=== PATIENT | female | born 1975 | race African-American/Black ===

== ENCOUNTER 2023-09-02 10:41 | Outpatient (REF) | payer MEDICAID, SELFPAY ==
[2023-09-02 13:15] LABS: MANUAL DIFF FLAG NO
[2023-09-02 13:19] LABS: Basophils Absolute Auto 0.1 X10*3/uL (0.0-0.2); Basophils Percent Auto 0.6 % (0-2); Eosinophils Absolute Auto 0.2 X10*3/uL (0.0-0.4); Eosinophils Percent Auto 2.5 % (0-4); Hematocrit 39.1 % (37.0-47.0); Hemoglobin 13.2 g/dl (12.0-16.0); Imm Gran Abs Auto 0.02 X10*3/uL (0.00-0.03); Imm Gran Pct Auto 0.2 % (0.0-0.4); Lymphocytes Absolute Auto 2.1 X10*3/uL (1.2-4.9); Lymphocytes Percent Auto 23.9 % (20-40); Mean Corpuscular HGB Conc 33.8 g/dl (31.0-35.0); Mean Corpuscular Volume 91.8 fL (80.0-98.0); Mean Platelet Volume 10.9 fL (9.4-12.3); Monocytes Absolute Auto 0.6 X10*3/uL (0.1-1.2); Monocytes Percent Auto 6.7 % (2-11); Neutrophils Absolute Auto 5.9 x10*3/uL (2.0-8.3); Neutrophils Percent Auto 66.1 % (45-73); Platelet Count 349 X10*3/uL (160-400); Red Blood Count 4.26 X10*6/uL (4.20-5.50); Red Cell Distribution Width 13.5 % (11.0-16.0); White Blood Count 8.9 X10*3/uL (4.8-10.8)
[2023-09-02 13:45] LABS: Alanine Aminotransferase 12 U/L (0-31); Albumin Level 4.1 g/dL (3.5-5.0); Alkaline Phosphatase 70 U/L (39-117); Anion Gap 11 (12-20); Aspartate Amino Transferase 16 U/L (5-31); Bilirubin Total 0.4 mg/dL (0.0-1.0); Blood Urea Nitrogen 5 mg/dL (9-16); Calcium 9.7 mg/dL (8.4-10.2); Carbon Dioxide 26 mmol/L (22-29); Chloride 103 mmol/L (96-108); Cholesterol 294 mg/dL (<200); Estimated Glomerular Filt Rate > 60; Glucose Random 96 mg/dL (60-115); HDL Cholesterol 30 mg/dL (>40); LDL Cholesterol Calculated 200 mg/dL (<100); Potassium 3.7 mmol/L (3.3-5.1); Sodium 136 mmol/L (135-145); Total Protein 7.2 g/dL (6.5-8.0); Triglycerides 321 mg/dL (<150)
== END 2023-09-02 10:42 | disposition home or self-care (01) ==
LOC: HO.10HDL 10:41
PROVIDERS: Visit Provider Internal Medicine
DX: Z00.00 Encounter for general adult medical examination without abnormal findings (principal); E78.00 Pure hypercholesterolemia, unspecified; I10 Essential (primary) hypertension; Z12.4 Encounter for screening for malignant neoplasm of cervix; Z72.0 Tobacco use
CPT/HCPCS: 36415; 80053; 80061; 85025

== ENCOUNTER 2023-09-15 13:04 | Outpatient (AMB) | payer MEDICAID, SELFPAY ==
--- NOTE | 2023-09-15 13:09 | A.OFFVIS_ITS ---
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 She states she has been getting a discomfort in substernal area and she points to the area underneath the left breast. This can happen any time. Sometimes with rest, sometimes exertion, and there is no specific patterns. No known coronary disease or myocardial infarction or cardiomyopathy. Not a known hypertensive or diabetic but today's blood pressure is on the higher side. She has a chronic smoker and trying to cut back. She is also overweight. Patient is adopted and hence no family history. [facility] Surgical History (Updated 09/15/23 @ 13:14 by Adelina Hart) H/O tubal ligation Family History (Updated 09/15/23 @ 13:22 by Wang Roger MD) Unknown No problems noted. Social History (Updated 09/15/23 @ 13:14 by Adelina Hart) Alcohol intake: current Alcohol intake frequency: holidays/special occasions only Patient Tobacco Use Status: Current everyday Tobacco user Cigarettes Per Day: 4 Review of Systems Const Denies chills, Denies daytime sleepiness, Denies fatigue, Denies fever(s), Denies frequent falls, Denies night sweats, Denies snoring, Denies weakness, Denies weight gain and Denies weight loss Eyes Denies loss of vision ENT Denies dizziness and Denies hearing loss Card Denies chest pain, Denies chest pain with activity, Denies syncope, Denies rapid heart rate, Denies edema, Denies claudication, Denies leg edema, Denies lightheadedness, Denies palpitations, Denies dyspnea, Denies dyspnea on exertion and Denies orthopnea Resp Denies cough, Denies excessive phlegm production, Denies dyspnea, Denies dyspnea on exertion, Denies snoring and Denies wheezing GI Denies abdominal pain, Denies hematochezia, Denies change in bowel habits, Denies change in stool character, Denies heartburn, Denies nausea and Denies vomiting Denies hematuria, Denies urinary frequency and Denies dysuria Musc Denies arthralgias, Denies muscle weakness, Denies numbness and Denies tingling Skin/Breast Denies nail changes and Denies rash Neuro Denies Abnormal speech present, Denies dizziness, Denies syncope, Denies frequent falls, Denies loss of vision, Denies memory loss, Denies numbness, Denies tingling and Denies weakness Psych Denies depression and Denies memory loss Endo Denies fatigue and Denies palpitations Aller/Immun Denies wheezing Physical Exam Vital Signs: Last Vital Signs Pulse 75 09/15/23 13:11 BP 138/90 H 09/15/23 13:11 BMI result Body Mass Index 35.4 Const General: comfortable and no acute distress Orientation/consciousness: patient oriented x3 HEENT Other: Unremarkable Head: Yes normal to inspection Neck Neck: Yes normal visual inspection Chest Chest palpation & inspection: normal inspection of the chest Resp Auscultation: clear to auscultation bilaterally Cardio Palpation: normal PMI Heart sounds: S1 normal heart sound present, S2 normal heart sound present, no gallops, no murmurs and no rubs GI Palpation (GI): Soft to palpation Back/Spine/Pelvis Other: unremarkable Skin General skin exam: no rashes or lesions noted Neuro General: patient oriented x3 Speech: No Abnormal speech present Extrem General: Yes normal to inspection Psych Mental Status: mental status grossly normal Office Procedures EKG Details: EKG with sinus rhythm at 75/Min; no significant ST-T changes and otherwise unremarkable[place] [id number], Complete Assessment & Plan Assessment & Plan (1) Precordial chest pain: Code(s): R07.2 - Precordial pain Plan Atypical sounding chest pain but has risk factors of being overweight and also being a smoker. Can get an echocardiogram and exercise stress test. Follow-up after the above. Orders: Orders CA echo transthoracic complete Today I25.10 - Atherosclerotic heart disease of [place] coronary artery without angina pectoris, R07.2 - Precordial pain CA echo stress exercise Today R07.2 - Precordial pain Coding Level of Care Code New Pt Level 3 (11855) Diagnoses Precordial chest pain R07.2 CPT Codes EKG - CPT: 40550-[id number], Complete ([id number])
[2023-09-15 13:11] VITALS: BP 138/90; PULSE 75; BMI 35.4
== END 2023-09-15 13:28 | disposition home or self-care (01) ==
PROVIDERS: PCP Internal Medicine; Visit Provider Internal Medicine
DX: R07.2 Precordial pain (principal)
CPT/HCPCS: 93010; 99203

== ENCOUNTER → 2023-09-15 13:04 | Outpatient (BNVA) | payer MEDICAID, SELFPAY | PROVIDERS: PCP Internal Medicine; Visit Provider Internal Medicine | DX: R07.2 Precordial pain (principal) | CPT/HCPCS: 93005; 99202 ==

== ENCOUNTER → 2023-11-04 13:52 | Outpatient (REF) | payer MEDICAID, SELFPAY | LOC: HO.CARD 13:52 | PROVIDERS: PCP Internal Medicine; Visit Provider Internal Medicine | DX: R07.2 Precordial pain (principal); I25.10 Atherosclerotic heart disease of native coronary artery without angina pectoris | CPT/HCPCS: 93306; 93356 ==

== ENCOUNTER → 2023-11-04 13:55 | Outpatient (BNV) | payer MEDICAID, SELFPAY | PROVIDERS: PCP Internal Medicine; Visit Provider Internal Medicine Cardiovascular Disease | DX: I25.10 Atherosclerotic heart disease of native coronary artery without angina pectoris (principal) | CPT/HCPCS: 93306 ==

== ENCOUNTER → 2023-11-12 11:20 | Outpatient (REF) | payer MEDICAID, SELFPAY ==
--- NOTE | 2023-11-12 11:23 | CA_ITS ---
Acquisition Time: 2023-11-12 11:17:59 Total Exercise Time: 00:07:48 Test Indications: ABN EKG, CP Medications: SEE H Protocol: SAMUEL Max HR: 169 BPM 96% of Pred: 175 BPM Max BP: 168/060 mmHG Max Work Load: 9.7 METS Exercise stress test exercise 7 min 48 sec of Samuel protocol achieving 96% MPHR, without chest discomfort, with mild SOB, without arrhythmias, with normotenisve response to exercise, without EKG changes. Echo images obtained by tech at rest and immediatly post peak exercise. Definity contrast used. Test reviewed with Dr. Yanes Referred By: Wang Roger Overread By: Maggie Tinoco
== END ==
LOC: HO.CARD 11:20
PROVIDERS: PCP Internal Medicine; Visit Provider Internal Medicine
DX: R07.2 Precordial pain (principal)
CPT/HCPCS: 93350; Q9957

== ENCOUNTER 2023-11-19 12:59 | Outpatient (AMB) | payer MEDICAID, SELFPAY ==
[2023-11-19 13:01] VITALS: BP 130/70; PULSE 97; BMI 36.4
--- NOTE | 2023-11-19 13:01 | MHC.OFFVIS ---
Intake Vital Signs 11/19/23 13:01 Height 4 ft 11 in Weight 180 lb 5.41 oz BMI 36.4 BP 130/70 Blood Pressure Location Lt brachial Position Sitting Pulse 97 Pulse Source Pulse Oximeter Intake Visit Reasons: f/up echo/stress echo HS Intake Note: f/up echo an stress echo HS pt still feels the discomfort all over her body. Behaviorist Required: No Accompanied by: Self / Same As Patient Allergies acetaminophen [From VICODIN] Allergy (Unknown, Verified 11/19/23 13:13) NAUSEA & VOMITING naproxen [NAPROXEN] Adverse Reaction (Intermediate, Verified 11/19/23 13:13) HEADACHE From VICODIN Allergy (Unknown, Uncoded 11/19/23 13:13) NAUSEA & VOMITING Medication List - Last Reconciled 11/19/23 by Maggie Tinoco NP acetaminophen ER (Tylenol 8 Hour) 650 mg PO Q12H atorvastatin 80 mg PO BEDTIME varenicline 0.5 mg PO BID HPI HPI Comments History of Present Illness Details 47-year-old female here for a follow-up after testing. Echocardiogram was essentially normal and stress echo was negative for ischemia. She reports since the stress test she was doing well but then yesterday she started to get the pain again in the mid lower chest. She massaged it yesterday and took a shower and it went away. She also was showing me where ti was and as she pushed on the area said it hurt more. She denies shortness of breath, swelling, or palpitations. She still smokes unfortunetly but has been cutting back more with the plan to quit. [facility] Surgical History H/O tubal ligation Family History Unknown No problems noted. Social History Alcohol intake: current Alcohol intake frequency: holidays/special occasions only Patient Tobacco Use Status: Current everyday Tobacco user Cigarettes Per Day: 4 Review of Systems Const Denies chills, Denies fatigue, Denies fever(s), Denies frequent falls, Denies weakness, Denies weight gain and Denies weight loss ENT Denies dizziness Card Denies chest pain, Denies leg edema, Denies lightheadedness, Denies palpitations, Denies dyspnea and Denies dyspnea on exertion Resp Denies cough, Denies dyspnea and Denies dyspnea on exertion GI Denies hematochezia Musc Denies abnormal gait, Denies muscle weakness, Denies numbness, Denies radiating pain into limb and Denies tingling Neuro Denies abnormal gait, Denies dizziness, Denies frequent falls, Denies numbness, Denies tingling and Denies weakness Endo Denies fatigue and Denies palpitations Physical Exam Const General: healthy appearing and no acute distress Orientation/consciousness: patient oriented x3 HEENT Head: Yes normal to inspection Eyes General: appearance normal, both eyes and all related structures Neck Neck: Yes normal visual inspection Chest Chest palpation & inspection: normal inspection of the chest Resp Effort & Inspection: normal respiratory effort Auscultation: clear to auscultation bilaterally Cardio Jugular venous distension: no JVD Palpation: normal PMI Rate: regular rate Rhythm: regular rhythm Heart sounds: S1 normal heart sound present, S2 normal heart sound present, no click, no gallops, no murmurs and no rubs GI Inspection: Yes normal to inspection Palpation (GI): Soft to palpation Skin General skin exam: no rashes or lesions noted Neuro General: patient oriented x3 Extrem General: Yes normal to inspection Psych Appearance: grossly normal Assessment & Plan Assessment & Plan (1) Precordial chest pain: Code(s): R07.2 - Precordial pain Plan Continue to monitor for chest pains. Discussed signs and symptoms of when to seek ED care. Pay mind to what makes it better or worse. Ensure bra is well fitting and that can cause discomforts. Cardiac test came back reassuring. Coding Level of Care Code Est Pt Level 3 (48204) Diagnoses Precordial chest pain R07.2
== END 2023-11-19 13:24 | disposition home or self-care (01) ==
PROVIDERS: PCP Internal Medicine; Visit Provider Nurse Practitioner
DX: R07.2 Precordial pain (principal)
CPT/HCPCS: 99213

== ENCOUNTER → 2023-11-19 12:59 | Outpatient (BNVA) | payer MEDICAID, SELFPAY | PROVIDERS: PCP Internal Medicine; Visit Provider Nurse Practitioner | DX: R07.2 Precordial pain (principal) | CPT/HCPCS: 99212 ==

== ENCOUNTER 2023-12-01 12:27 | Outpatient (REF) | payer MEDICAID, SELFPAY ==
[2023-12-07 23:49] LABS: HPV mRNA E6/E7 rflx Not Detected (Not Detected)
== END 2023-12-01 12:28 | disposition home or self-care (01) ==
LOC: HO.LNP 12:27
PROVIDERS: PCP Internal Medicine; Visit Provider Obstetrics & Gynecology
DX: N93.9 Abnormal uterine and vaginal bleeding, unspecified (principal); R10.9 Unspecified abdominal pain; Z32.02 Encounter for pregnancy test, result negative
CPT/HCPCS: 0353U; 81025; 84146; 84443; 84702; 85027; 87624; 88142; 99202

== ENCOUNTER 2023-12-01 12:27 | Outpatient (AMB) | payer MEDICAID, SELFPAY ==
[2023-12-01 12:32] VITALS: BP 122/86; BMI 35.5
--- NOTE | 2023-12-01 12:32 | A.OFFVIS_ITS ---
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 Information Interpreted: non-clinical & clinical Product Marketing Consultant: Product Marketing Consultant Present (Aidyn) Allergies acetaminophen [From VICODIN] Allergy (Unknown, Verified 12/01/23 12:34) NAUSEA & VOMITING naproxen [NAPROXEN] Adverse Reaction (Intermediate, Verified 12/01/23 12:34) HEADACHE From VICODIN Allergy (Unknown, Uncoded 12/01/23 12:34) NAUSEA & VOMITING Is last menstrual period known: Yes Last menstrual period: 11/30/23 Post menopausal: No HPI HPI Comments History of Present Illness Details The patient is presenting c/o irregular bleeding associated with passage of blood clots and abdominal cramping. it started few months ago and is getting worse no other associated symptoms. Last co testing mammogram were many years ago PFSH Surgical History H/O tubal ligation Family History Unknown No problems noted. Social History Alcohol intake: current Alcohol intake frequency: holidays/special occasions only Patient Tobacco Use Status: Current everyday Tobacco user Cigarettes Per Day: 4 Female Reproductive History Menstrual Age of Menarche: 14 Duration of menses: 6-7 days Date of last menstrual period: 11/30/23 control method: permanent sterilization Total pregnancies: 5 Full term: 3 Number of Living Children: 3 Ab induced: 2 History of abnormal pap smear: Yes Review of Systems Const All systems reviewed & are unremarkable except as noted in HPI and below Card Reports as per HPI Resp Reports as per HPI GI Reports as per HPI and Reports no additional complaints Reports as per HPI Physical Exam Vital Signs: Last Vital Signs BP 122/86 12/01/23 12:32 BMI result Body Mass Index 35.5 Const General: cooperative, healthy appearing and comfortable Chest Chest palpation & inspection: normal inspection of the chest and normal palpation of entire chest wall Breast/axilla inspection: normal inspection of the breasts and normal inspection of the axillae Breast/axilla palpation: normal palpation of the breasts, normal palpation of the axillae and no axillary lymphadenopathy Resp Effort & Inspection: normal respiratory effort Auscultation: clear to auscultation bilaterally Percussion: percussion normal Cardio Palpation: normal PMI Rate: regular rate Rhythm: regular rhythm Heart sounds: no murmurs and no rubs Peripheral pulses: Peripheral pulses 2+ throughout GI Inspection: Yes normal to inspection Palpation (GI): Soft to palpation, nontender, no guarding, not rigid and No hepatosplenomegaly present Percussion: Yes normal to percussion Auscultation: normal bowel sounds Rectal Exam - Female: deferred General: Yes bladder normal to palpation External Female Exam: No lesion Speculum Exam - Vagina: normal appearance of the vagina, normal palpation, normal vaginal discharge and not erythematous Speculum Exam - Cervix: normal appearance of the cervix and normal palpation Bimanual exam- vagina & uterus: normal bimanual exam, normal palpation, uterine size normal, bladder normal to palpation, consistency normal and normal palpation Bimanual Exam- Adnexa, other: normal adnexae, no masses and no tenderness Assessment & Plan Assessment & Plan (1) Abnormal uterine bleeding: Code(s): N93.9 - Abnormal uterine and vaginal bleeding, unspecified Plan: Screening mammogram, Co testing done, GC and chlamydia taken CBC, TSH, prolactin, HCG, and pelvic ultrasound ordered. Discussed with the patient the different causes of abnormal bleeding including thyroid disorders, uterine and ovarian pathology, endometrial hyperplasia, carcinoma and other potential causes. Discussed with the patient the work up including CBC (to r/o anemia), TSH, pelvic Ultrasound, endometrial biopsy to r/o endometrial pathology. All questions answered and the patient verbalized understanding. Instructed the adwoa garsia to schedule an appointment for an endometrial biopsy in 2 weeks. Orders: Orders Complete Blood Count no Diff Today N93.9 - Abnormal uterine and vaginal bleeding, unspecified HCG Quantitative Today N93.9 - Abnormal uterine and vaginal bleeding, unspecified MM screening mammo BI Today Z12.31 - Encounter for screening mammogram for malignant neoplasm of breast Prolactin Today N93.9 - Abnormal uterine and vaginal bleeding, unspecified TSH reflex Free T4 Today N93.9 - Abnormal uterine and vaginal bleeding, unspecified US pelvic and transvaginal Today N93.9 - Abnormal uterine and vaginal bleeding, unspecified Coding Level of Care Code New Pt Level 3 (17743) Diagnoses Abnormal uterine bleeding N93.9
== END 2023-12-01 14:47 | disposition home or self-care (01) ==
LOC: HO.HWS 12:27
PROVIDERS: PCP Internal Medicine; Visit Provider Obstetrics & Gynecology
DX: Z32.02 Encounter for pregnancy test, result negative (principal); N93.9 Abnormal uterine and vaginal bleeding, unspecified
CPT/HCPCS: 99203

== ENCOUNTER 2023-12-01 13:04 | Outpatient (REF) | payer MEDICAID, SELFPAY ==
[2023-12-01 13:45] LABS: Hematocrit 36.1 % (37.0-47.0); Hemoglobin 12.4 g/dl (12.0-16.0); Mean Corpuscular HGB Conc 34.3 g/dl (31.0-35.0); Mean Corpuscular Hemoglobin 30.8 pg (27.0-33.0); Mean Corpuscular Volume 89.6 fL (80.0-98.0); Mean Platelet Volume 10.2 fL (9.4-12.3); Platelet Count 351 X10*3/uL (160-400); Red Blood Count 4.03 X10*6/uL (4.20-5.50); Red Cell Distribution Width 12.6 % (11.0-16.0); White Blood Count 11.2 X10*3/uL (4.8-10.8)
[2023-12-01 14:31] LABS: HCG Quantitative < 2 mIU/mL; TSH reflex Free T4 1.69 uIU/mL (0.32-4.0)
[2023-12-01 17:25] LABS: CT PCR NOT DETECTED (Not Detect.); NG PCR NOT DETECTED (Not Detect.)
[2023-12-02 19:03] LABS: Prolactin 22.5 ng/mL
== END 2023-12-01 13:05 | disposition home or self-care (01) ==
LOC: HO.LAB 13:04
PROVIDERS: PCP Internal Medicine; Visit Provider Obstetrics & Gynecology
DX: N93.9 Abnormal uterine and vaginal bleeding, unspecified (principal)
CPT/HCPCS: 0353U; 84146; 84443; 84702; 85027

== ENCOUNTER 2023-12-17 12:48 | Outpatient (REF) | payer MEDICAID, SELFPAY ==
--- NOTE | ~2023-12-17 | US_ITS ---
EXAMINATION: US PELVIS CLINICAL INFORMATION: Abnormal uterine and vaginal bleeding; the last menstrual period was on 12/01/2023. COMPARISON: None available. TECHNIQUE: Ultrasound of the pelvis is performed using both transabdominal and transvaginal transducers along with Doppler. Transvaginal imaging is performed due to inadequate visualization transabdominally. FINDINGS: The uterus is of normal size and heterogeneous in echotexture, measuring 12.1 x 7.8 x 9.1 cm. The uterus is anteverted. A regular homogeneous endometrium is identified measuring 0.8 cm. Nabothian cysts are seen within the cervix FIBROIDS: There are 2 fibroids seen. 1. Location: Upper rightward body towards the isthmus; myometrial. Size: 2.9 x 3.0 x 2.7 cm. Fibroid characteristics: Heterogeneous echotexture. 2. Location: Upper leftward body, myometrial. Size: 2.4 x 2.2 x 2.2 cm. Fibroid characteristics: Heterogeneous echotexture. Both ovaries are of normal size and echogenicity. The right ovary measures 2.9 x 2.5 x 2.0 cm for a volume of 7.6 mL. The left ovary measures 3.3 x 2.0 x 1.6 cm for a volume of 5.5 mL. There are small physiologic follicles of the bilateral ovaries. There is no pelvic free fluid. US/US pelvic and transvaginal IMPRESSION: 1. There are uterine fibroids, as detailed. 2. Nabothian cysts are seen within the cervix.
== END 2023-12-17 12:49 | disposition home or self-care (01) ==
LOC: HO.US 12:48
PROVIDERS: PCP Internal Medicine; Visit Provider Obstetrics & Gynecology
DX: N93.9 Abnormal uterine and vaginal bleeding, unspecified (principal)
CPT/HCPCS: 76830; 76856

== ENCOUNTER → 2024-01-08 13:30 | Outpatient (BNV) | payer MEDICAID, SELFPAY | PROVIDERS: PCP Internal Medicine; Visit Provider Radiology Diagnostic Radiology | DX: Z12.31 Encounter for screening mammogram for malignant neoplasm of breast (principal) | CPT/HCPCS: 77063; 77067 ==

== ENCOUNTER 2024-01-08 13:45 | Outpatient (REF) | payer MEDICAID, SELFPAY ==
--- NOTE | 2024-01-08 | EMG_ITS ---
Chief complaint: Bilateral hand numbness Diagnosed Carpal Tunnel Syndrome several years ago, no surgery yet Reason for referral: Evaluate for bilateral upper extremities Referred by: Dr. Alexander Procedure done: Precautions and/or limitations: None The limb temperature was monitored continuously and remained between 32-36 degrees C during the performance of the NCS. Nerve Conduction Studies Anti Sensory Summary Table ?Stim Site NR Onset (ms) Norm Onset (ms) Peak (ms) Norm Peak (ms) O-P Amp (?V) Norm O-P Amp Site1 Site2 Delta-0 (ms) Dist (cm) Cleve (m/s) Norm Cleve (m/s) Left Median Anti Sensory (2nd Digit) Wrist ? 3.2 4.2 <3.6 13.2 >10 Wrist 2nd Digit 3.2 14.0 44 Right Median Anti Sensory (2nd Digit) Wrist ? 3.4 4.3 <3.6 9.9 >10 Wrist 2nd Digit 3.4 14.0 41 Right Radial Anti Sensory (Thumb) Forearm ? 1.5 2.1 <3.1 19.1 Forearm Thumb 1.5 0.0 Left Ulnar Anti Sensory (5th Digit) Wrist ? 1.2 3.1 <3.7 16.1 >15.0 Wrist 5th Digit 1.2 14.0 117 Right Ulnar Anti Sensory (5th Digit) Wrist ? 1.0 3.0 <3.7 15.8 >15.0 Wrist 5th Digit 1.0 14.0 140 Motor Summary Table ?Stim Site NR Onset (ms) Norm Onset (ms) O-P Amp (mV) Norm O-P Amp iAmp (mV) Amp (1st) (%) Site1 Site2 Delta-0 (ms) Dist (cm) Cleve (m/s) Norm Celve (m/s) Left Median Motor (Abd Poll Brev) Wrist ? 4.5 <3.9 11.0 >4.5 12.2 100.0 Elbow Wrist 3.4 18.5 54 >45 Elbow ? 7.9 10.3 11.5 93.6 Right Median Motor (Abd Poll Brev) Wrist ? 4.8 <3.9 10.8 >4.5 11.8 100.0 Elbow Wrist 3.7 19.0 51 >45 Elbow ? 8.5 11.3 12.4 104.6 Left Ulnar Motor (Abd Dig Minimi) Wrist ? 2.8 <3.0 5.8 >5 6.5 100.0 B Elbow Wrist 2.7 17.0 63 >45 B Elbow ? 5.5 5.7 6.5 98.3 A Elbow B Elbow 1.0 10.0 100 >45 A Elbow ? 6.5 5.9 6.8 101.7 Right Ulnar Motor (Abd Dig Minimi) Wrist ? 2.6 <3.0 7.8 >5 8.9 100.0 B Elbow Wrist 3.0 18.0 60 >45 B Elbow ? 5.6 6.1 7.0 78.2 A Elbow B Elbow 1.0 10.0 100 >45 A Elbow ? 6.6 7.9 9.4 101.3 EMG ?Side Muscle Nerve Root Ins Act Fibs Psw Amp Dur Poly Recrt Int Pat Comment Right 1stDorInt Ulnar C8-T1 Nml Nml Nml Nml Nml 0 Nml Complete Right FlexCarRad Median C6-7 Nml Nml Nml Nml Nml 0 Nml Complete Right Biceps Musculocut C5-6 Nml Nml Nml Nml Nml 0 Nml Complete Right Triceps Radial C6-7-8 Nml Nml Nml Nml Nml 0 Nml Complete Right Deltoid Axillary C5-6 Nml Nml Nml Nml Nml 0 Nml Complete Left 1stDorInt Ulnar C8-T1 Nml Nml Nml Nml Nml 0 Nml Complete Left FlexCarRad Median C6-7 Nml Nml Nml Nml Nml 0 Nml Complete Left Biceps Musculocut C5-6 Nml Nml Nml Nml Nml 0 Nml Complete Left Triceps Radial C6-7-8 Nml Nml Nml Nml Nml 0 Nml Complete Left Deltoid Axillary C5-6 Nml Nml Nml Nml Nml 0 Nml Complete FINDINGS: Bilateral median motor nerves showed prolonged distal latency, normal amplitude and normal conduction velocity. Bilateral median sensory nerves showed prolonged peak latency. All other nerves tested were within normal. Concentric needle EMG was performed in selected muscles of the bilateral upper extremities. Study did not reveal signs of electric abnormalities as shown in the table below. IMPRESSION: 1. This is an abnormal study. 2. There is electrodiagnostic evidence for bilateral moderate-severe median neuropathy at the wrist, consistent with carpal tunnel syndrome. 3. There is no electrodiagnostic evidence for ulnar neuropathy, brachial plexopathy, or cervical radiculopathy. Thank you for your kind referral. Amber Eller MD, SUBHA Board Certified, [place] [employer] and [employer] (ABPMR) Board Certified, [place] Board [employer] Electrodiagnostic Medicine (ABEM) CODIN 60661 x 2 MTDD
--- NOTE | ~2024-01-08 | MM_ITS ---
EXAMINATION: MM SCREENING DIGITAL BREAST TOMOSYNTHESIS, BILATERAL CLINICAL INFORMATION: Screening. Asymptomatic. COMPARISON: Mammography: This is a baseline mammogram. TECHNIQUE: Digital breast tomosynthesis is performed in both the craniocaudal and mediolateral oblique views along with computer-aided detection (CAD). Synthesized 2D images are generated from the tomosynthesis. FINDINGS: There are scattered areas of fibroglandular density (ACR BI-RADS breast composition Category b). There are no significant masses, abnormal calcifications, or other abnormalities. MM/MM tomosynthesis screening BI IMPRESSION: No mammographic evidence of malignancy. ASSESSMENT: BI-RADS BI-RADS 1 - Negative RECOMMENDATION: Routine annual mammography screening. 1 year F/U This examination should not preclude the clinical evaluation of a suspicious palpable abnormality. This patient's information was entered into a reminder system with a target due date for their next mammogram.
== END 2024-01-08 13:46 | disposition home or self-care (01) ==
LOC: HO.MAMMO 13:45
PROVIDERS: PCP Internal Medicine; Visit Provider Obstetrics & Gynecology
DX: Z12.31 Encounter for screening mammogram for malignant neoplasm of breast (principal); G56.03 Carpal tunnel syndrome, bilateral upper limbs
CPT/HCPCS: 77063; 77067; 95886; 95911

== ENCOUNTER → 2024-01-08 14:23 | Outpatient (BNV) | payer MEDICAID, SELFPAY | PROVIDERS: PCP Internal Medicine; Visit Provider Physical Medicine & Rehabilitation | DX: G56.03 Carpal tunnel syndrome, bilateral upper limbs (principal); G56.13 Other lesions of median nerve, bilateral upper limbs | CPT/HCPCS: 95886; 95911 ==

== ENCOUNTER 2024-02-01 12:00 | Outpatient (REF) | payer MEDICAID, SELFPAY | END 2024-02-01 12:01 | disposition home or self-care (01) | LOC: HO.LNP 12:00 | PROVIDERS: PCP Internal Medicine; Visit Provider Obstetrics & Gynecology | DX: N93.9 Abnormal uterine and vaginal bleeding, unspecified (principal) | CPT/HCPCS: 58100; 81025; 88305 ==

== ENCOUNTER 2024-02-01 12:00 | Outpatient (AMB) | payer MEDICAID, SELFPAY ==
--- NOTE | 2024-02-01 12:17 | A.OFFVIS_ITS ---
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 Social History Alcohol intake: current Alcohol intake frequency: holidays/special occasions only Patient Tobacco Use Status: Current everyday Tobacco user Cigarettes Per Day: 4 Female Reproductive History Menstrual Age of Menarche: 14 Date of last menstrual period: 12/29/23 Review of Systems Const All systems reviewed & are unremarkable except as noted in HPI and below Reports as per HPI and Reports no additional complaints GI Reports no additional complaints Reports no additional complaints Physical Exam Vital Signs: Last Vital Signs BP 110/64 02/01/24 12:20 BMI result Body Mass Index 35.2 Office Procedures Endometrial Biopsy Details: The patient was counseled regarding the indication and benefits of endometrial sampling to rule out endometrial pathology including not limited to endometrial hyperplasia or endometrial cancer and others; The alternatives (Either do nothing vs. hysteroscopy D&C) & the risks were discussed with the patient including but not limited: pain, uterine perforation, bleeding, infection, possible injury to bladder, bowel, ureter, possible need for blood transfusion with all its possible risks. The patient verbalized understanding all questions answered and signed consent. Urine test done in the office was negative The patient was placed into the dorsal lithotomy position; a speculum was inserted in the vagina. Using aseptic technique for the procedure, the cervix was cleansed with Betadine. The anterior lip of the cervix was grasped with a single tooth tenaculum. The uterus was sounded to 7 cm with a 4 mm Pipelle was used. Tissues samples were obtained and placed in formalin, in a patient labeled container and sent to the pathology department. At the end of the procedure, there was minimal bleeding noted The patient tolerated the procedure well and was discharged in good condition with the following instructions: Nothing in the vagina until the bleeding stops. No sex until the bleeding stops, to call if any of the following occurs: fever (>100.4), flu-like symptoms, abdominal pain, heavy bleeding, four smelling vaginal discharge. The patient was instructed to schedule a Follow up appointment in 2 weeks to discuss pathology results of the biopsy and treatment options. This note was generated with a voice recognition program. Some errors may have been overlooked during the review of this note. Sometimes these errors may affect the content or meaning of a given sentence. [id number] Biopsy Assessment & Plan Assessment & Plan (1) Abnormal uterine bleeding: Code(s): N93.9 - Abnormal uterine and vaginal bleeding, unspecified Plan: EMB done, see procedure note Orders: Orders AMB Endometrial Biopsy Today N93.9 - Abnormal uterine and vaginal bleeding, unspecified Coding Level of Care Code Procedure Only Diagnoses Abnormal uterine bleeding N93.9 CPT Codes Endometrial Biopsy - CPT: 88526-[id number] Biopsy ([id number])
[2024-02-01 12:20] VITALS: BP 110/64; BMI 35.2
== END 2024-02-01 12:46 | disposition home or self-care (01) ==
PROVIDERS: PCP Internal Medicine; Visit Provider Obstetrics & Gynecology
DX: N93.9 Abnormal uterine and vaginal bleeding, unspecified (principal); Z32.02 Encounter for pregnancy test, result negative
CPT/HCPCS: 58100

== ENCOUNTER 2024-02-16 14:13 | Outpatient (AMB) | payer MEDICAID, SELFPAY ==
--- NOTE | 2024-02-16 14:24 | MHC.OFFVIS ---
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 Intake Note: Clarisse 48 yr old right hand dominant female presents today for bilateral hand CTS. States her right is worse. She was first diagnose with CTS approx 20 yrs ago. As of 6 months ago her symptoms have worsen. Currently her CTS comes and goes and is worse at night time. She is experiencing hand weakness and is not able to open jars. EMG done. Hx of O.A. 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 HPI Details Clarisse is a 48 year old right hand dominant woman who presents for a NCS review of her bilateral hand numbness, R>L. She complains of numbness in her thumb, index, and middle fingers bilaterally. Symptoms intermittent, but daily, worse at night. She complains of weakness, particularly with gripping activities, along with some aching. She says she has a hx of OA and complains of some pain at the base of her thumbs. 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 She says she was first diagnosed in ~2003, but her symptoms have worsened in the last ~6 months. [facility] Surgical History H/O tubal ligation Family History Unknown No problems noted. 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 Female Reproductive History Menstrual Age of Menarche: 14 Review of Systems Const All systems reviewed & are unremarkable except as noted in HPI and below Physical Exam Vital Signs: BMI result Body Mass Index 35.1 Const General: cooperative, healthy appearing and no acute distress Orientation/consciousness: patient oriented x3 HEENT Head: Yes normocephalic and Yes atraumatic Eyes EOM: EOMs intact bilaterally Resp Effort & Inspection: normal respiratory effort and able to speak in complete sentences Cardio Jugular venous distension: no JVD Skin General skin exam: turgor normal Rashes: no rashes Neuro General: patient oriented x3 Extrem Other: Evaluation of Bilateral Upper Extremity: The patient is alert, oriented, and in no acute distress Neuro: Decreased subjective sensation in the median nerve distribution bilaterally today in clinic. normal sensation in the ulnar nerve distribution bilaterally No thenar or intrinsic wasting Good APB muscle belly firing and good finger cross Vascular: Cap refill brisk ROM: She can make a fist and extend all her digits No locking or catching Skin: No lacerations or abrasions. General: No Ecchymosis. No Erythema or evidence of infection. Mild tenderness about the basal joint No tenderness over the 1st dorsal compartment She demonstrated having pain in her right hand. She placed her thumb over FCR and index finger over ECRL and says she has pain in this area Not particularly tender over 1st dorsal compartment No swelling or warmth Nerve Conduction Study: IMPRESSION: 1. This is an abnormal study. 2. There is electrodiagnostic evidence for bilateral moderate-severe median neuropathy at the wrist, consistent with carpal tunnel syndrome. 3. There is no electrodiagnostic evidence for ulnar neuropathy, brachial plexopathy, or cervical radiculopathy. Amber Eller MD, SUBHA 01/08/24 Psych Appearance: grossly normal Affect: normal affect Attitude: cooperative Assessment & Plan Assessment & Plan (1) Carpal tunnel syndrome of right wrist: Code(s): G56.01 - Carpal tunnel syndrome, right upper limb (2) Carpal tunnel syndrome of left wrist: Code(s): G56.02 - Carpal tunnel syndrome, left upper limb (3) Right hand pain: Code(s): M79.641 - Pain in right hand Plan Assessment & Plan: 1. Right carpal tunnel syndrome, moderate-severe Symptoms intermittent, but daily, worse at night 2. Left carpal tunnel syndrome, moderate-severe Symptoms intermittent, but daily, worse at night I educated her about this condition I discussed operative and non-operative treatment options The patient would like to proceed with surgery, beginning with her right side We will discuss treatment for her left side when she has recovered from surgery The risks and benefits of operative treatment were discussed with the patient and the patient wishes to proceed with surgery. These risks include, but are not limited to risk of damage to blood vessels, nerves, tendons, infection, recurrence, incomplete relief of preoperative symptoms, persistent pain, possible need for further surgery and the risks associated with regional blocks and anesthesia. The plan is to take the patient to the operating room sometime in the next few weeks for the following procedures: 1. Right carpal tunnel release, under local All of the preoperative paperwork including the consent was reviewed today. All the patient's questions were answered. The patient understands that they will be contacted by our content developer soon to schedule this procedure She denies Diabetes, blood thinners, asthma, heart, lung, kidney issues 3. Right radial sided hand pain Etiology unclear May involve the basal joint This is something we may work up in the future, and will likely need radiographs Scribed for Saima Dowell MD by Silverio Maciel, medical office receptionist, on 02/16/24 at 2:40 PM, EST. Coding Level of Care Code New Pt Level 4 (58601) Diagnoses Carpal tunnel syndrome of right wrist G56.01 Carpal tunnel syndrome of left wrist G56.02 Right hand pain M79.641
[2024-02-16 14:25] VITALS: BMI 35.1
== END 2024-02-16 14:47 | disposition home or self-care (01) ==
LOC: HO.HOS 14:13
PROVIDERS: PCP Internal Medicine; Visit Provider Orthopaedic Surgery
DX: G56.03 Carpal tunnel syndrome, bilateral upper limbs (principal); M79.641 Pain in right hand
CPT/HCPCS: 99204

== ENCOUNTER → 2024-02-16 14:13 | Outpatient (BNVA) | payer MEDICAID, SELFPAY | PROVIDERS: PCP Internal Medicine; Visit Provider Orthopaedic Surgery | DX: G56.03 Carpal tunnel syndrome, bilateral upper limbs (principal); M79.641 Pain in right hand | CPT/HCPCS: 99202 ==

== ENCOUNTER 2024-03-01 12:28 | Outpatient (AMB) | payer MEDICAID, SELFPAY ==
--- NOTE | 2024-03-01 12:33 | MHC.OFFVIS ---
Vital Signs 03/01/24 12:34 Height 4 ft 11 in Weight 174 lb BMI 35.1 BP 122/72 Intake Visit Reasons: EMB Results General Agent Required: No Allergies acetaminophen [From VICODIN] Allergy (Unknown, Verified 03/01/24 12:34) NAUSEA & VOMITING naproxen [NAPROXEN] Adverse Reaction (Intermediate, Verified 03/01/24 12:34) HEADACHE From VICODIN Allergy (Unknown, Uncoded 03/01/24 12:34) NAUSEA & VOMITING Post menopausal: No HPI Comments Details: The patient is presenting for follow-up to discuss the results of her abnormal uterine bleeding workup and options of treatment. The following workup was done.: H&H= 12.4/36.1 TSH, prolactin, hCG, GC and chlamydia were negative. Endometrial biopsy pathology showed benign proliferative endometrium with no evidence of hyperplasia and/or malignancy. Co testing was done was negative. Mammogram was BI-RADS 1 Pelvic ultrasound showed the following: The uterus is of normal size and heterogeneous in echotexture, measuring 12.1 x 7.8 x 9.1 cm. The uterus is anteverted. A regular homogeneous endometrium is identified measuring 0.8 cm. Nabothian cysts are seen within the cervix FIBROIDS: There are 2 fibroids seen. 1. Location: Upper rightward body towards the isthmus; myometrial. Size: 2.9 x 3.0 x 2.7 cm. Fibroid characteristics: Heterogeneous echotexture. 2. Location: Upper leftward body, myometrial. Size: 2.4 x 2.2 x 2.2 cm. Fibroid characteristics: Heterogeneous echotexture. Both ovaries are of normal size and echogenicity. The right ovary measures 2.9 x 2.5 x 2.0 cm for a volume of 7.6 mL. The left ovary measures 3.3 x 2.0 x 1.6 cm for a volume of 5.5 mL. There are small physiologic follicles of the bilateral ovaries. There is no pelvic free fluid. [facility] Surgical History H/O tubal ligation Family History Unknown No problems noted. 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 Reproductive History Menstrual Age of Menarche: 14 control method: permanent sterilization Date of last pap smear: 12/02/23 Review of Systems Const All systems reviewed & are unremarkable except as noted in HPI and below Reports as per HPI and Reports no additional complaints GI Reports no additional complaints Reports no additional complaints Physical Exam Vital Signs: Last Vital Signs BP 122/72 03/01/24 12:34 BMI result Body Mass Index 35.1 Assessment & Plan Assessment & Plan (1) Abnormal uterine bleeding: Code(s): N93.9 - Abnormal uterine and vaginal bleeding, unspecified Category: Medical Plan: Discussed with the patient the results of the work up done and options of treatment including Lysteda, control pills, Mirena IUD, endometrial ablation and hysterectomy. All pros, cons, risks and benefits if each option was discussed with the patient and the patient decided to go ahead with Mirena IUD so a more detailed discussion about it was conducted including mechanism of action, risks (uterine perforation, infection, injury to bladder, bowel, displacement, and others) benefits (hypo menorrhea, amenorrhea, ...). GC/CT were taken and the patient was instructed to schedule Mirena IUD insertion on day 1-5 of next cycle . All questions answered, the patient verbalized understanding (2) Uterine myoma: Code(s): D25.9 - Leiomyoma of uterus, unspecified Category: Medical Plan: Discussed with the patient the findings on pelvic ultrasound & the risk of myosarcoma; discussed with the patient the options of treatment including expectant management versus hysterectomy; the pros and cons, risks benefits of each approach were discussed with the patient including the fact that in cases of myosarcoma, surgical treatment can lead to early diagnosis and positively affects the prognosis; after further discussion, the patient decided to proceed with expectant management. Will repeat pelvic ultrasound periodically. Instructions given to patient to call in case any of the following occurs: pressure symptoms, abnormal uterine bleeding, pelvic pain; and to schedule a 6 months ultrasound follow-up appointment . All questions answered, the patient verbalized understanding and agreed with the plan . Orders: Orders US pelvic and transvaginal 6 Months D25.9 - Leiomyoma of uterus, unspecified Coding Level of Care Code Est Pt Level 3 (60582) Diagnoses Abnormal uterine bleeding N93.9 Uterine myoma D25.9
[2024-03-01 12:34] VITALS: BP 122/72; BMI 35.1
== END 2024-03-01 13:18 | disposition home or self-care (01) ==
LOC: HO.HWS 12:28
PROVIDERS: PCP Internal Medicine; Visit Provider Obstetrics & Gynecology
DX: N93.9 Abnormal uterine and vaginal bleeding, unspecified (principal); D25.9 Leiomyoma of uterus, unspecified
CPT/HCPCS: 99213

== ENCOUNTER → 2024-03-01 12:28 | Outpatient (BNVA) | payer MEDICAID, SELFPAY | PROVIDERS: PCP Internal Medicine; Visit Provider Obstetrics & Gynecology | DX: N93.9 Abnormal uterine and vaginal bleeding, unspecified (principal); D25.9 Leiomyoma of uterus, unspecified | CPT/HCPCS: 99212 ==

== ENCOUNTER 2024-03-17 08:56 | Outpatient (REF) | payer MEDICAID, SELFPAY ==
[2024-03-17 11:39] LABS: Alanine Aminotransferase 14 U/L (0-31); Albumin Level 4.1 g/dL (3.5-5.0); Alkaline Phosphatase 82 U/L (39-117); Anion Gap 13 (12-20); Aspartate Amino Transferase 16 U/L (5-31); Bilirubin Total 0.6 mg/dL (0.0-1.0); Blood Urea Nitrogen 7 mg/dL (9-16); Calcium 9.1 mg/dL (8.4-10.2); Carbon Dioxide 27 mmol/L (22-29); Chloride 104 mmol/L (96-108); Cholesterol 170 mg/dL (<200); Estimated Glomerular Filt Rate > 60; Glucose Random 109 mg/dL (60-115); HDL Cholesterol 34 mg/dL (>40); LDL Cholesterol Calculated 93 mg/dL (<100); Potassium 3.6 mmol/L (3.3-5.1); Sodium 140 mmol/L (135-145); Triglycerides 218 mg/dL (<150)
[2024-03-17 11:42] LABS: Thyroid Stimulating Hormone 1.42 uIU/mL (0.32-4.0)
== END 2024-03-17 08:57 | disposition home or self-care (01) ==
LOC: HO.10HDL 08:56
PROVIDERS: Visit Provider Internal Medicine
DX: G56.03 Carpal tunnel syndrome, bilateral upper limbs (principal); I10 Essential (primary) hypertension; Z68.36 Body mass index [BMI] 36.0-36.9, adult; E78.01 Familial hypercholesterolemia
CPT/HCPCS: 36415; 80053; 80061; 84443

== ENCOUNTER 2024-04-04 10:48 | Emergency (ER) | payer MEDICAID, SELFPAY ==
--- NOTE | ~2024-04-04 | XR_ITS ---
EXAMINATION: XR HAND, RIGHT CLINICAL INFORMATION: Thumb pain. COMPARISON: None available. TECHNIQUE: PA, lateral, and oblique views of the right hand. FINDINGS: There is mild loss of PIP joint space with periarticular spurring first digit. Minimal loss of PIP and DIP joint spaces of second through fifth digits is noted without bony erosive changes. No visible acute fracture or dislocation seen. The soft tissues are normal. XR/XR hand RT min 3V IMPRESSION: Mild degenerative changes PIP and DIP joints second through fifth digit and PIP joint first digit. No visible acute fracture or dislocation seen.
[2024-04-04 11:34] VITALS: BP 140/82; PULSE 82; RESP 16; TEMP 36.3; O2SAT 99; BMI 37.8
--- NOTE | 2024-04-04 15:50 | ED_ITS ---
HPI - Extremity Problem General Chief complaint: Extremity Problem Stated complaint: r wrist pain Time Seen by Provider: 04/04/24 15:23 Source: patient Mode of arrival: ambulatory Limitations: no limitations History of Present Illness ED Provider: Loyd Deshpande PA-C HPI Narrative: 48 yo right hand dominant female with history of known carpal tunnel syndrome (bilateral w/ plan for surgery w/ Dr. Dowell on 04/19) who presents to the ER for evaluation of worsening right thumb pain for the past several weeks. She reports getting a cortisone injection in her wrist recently with no improvement in the pain. 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 hurts to make a fist. she has been wearing her wrist brace at night with no improvement. she is taking tylenol w/ minimal relief. Complaint: joint pain Onset (ago): week(s) Pain Consistency: constant Location: right and upper extremity Radiation: proximal Relieving factors: rest Exacerbating factors: range of motion and palpation Associated symptoms: denies other symptoms Related Data Home Medications ?Medication ?Instructions ?Recorded ?Confirmed acetaminophen 650 mg 650 mg PO Q12H 09/15/23 09/15/23 tablet,extended release (Tylenol 8 Hour) varenicline 0.5 mg tablet 0.5 mg PO BID 09/15/23 09/15/23 atorvastatin 80 mg tablet 80 mg PO BEDTIME 11/19/23 losartan 50 mg-hydrochlorothiazide 1 tab PO DAILY 02/16/24 12.5 mg tablet Allergies Allergy/AdvReac Type Severity Reaction Status Date / Time acetaminophen [From VICODIN] Allergy Unknown NAUSEA & Verified 04/04/24 11:37 VOMITING naproxen [NAPROXEN] AdvReac Intermediate HEADACHE Verified 04/04/24 11:37 From VICODIN Allergy Unknown NAUSEA & Uncoded 04/04/24 11:37 VOMITING Review of Systems Review of Systems: Yes all other systems are reviewed and are negative PMFSH Past Medical History Surgical History H/O tubal ligation Family History Family History Unknown No problems noted. 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 Oriented X3. No acute distress. HEENT: normal inspection CVS: Normal heart rate and rhythm. Pulses normal. Respiratory: No respiratory distress. Skin: Skin warm and dry. Normal skin color. Normal skin turgor. No rashes. Extremities: normal inspection of the bilateral hands. the right hand and thumb without any significant joint swelling. no erythema or warmth of the right wrist or thumb. tenderness of the MCP of the thumb, the lateral aspect of the base of the thumb. 2+ radial pulse. normal ROM of the IP joint. +Finklestein test Neuro: Oriented X 3. No motor deficit. No sensory deficit. Medications Administered Discontinued Medications Generic Name Dose Route Start Last Admin Trade Name Freq PRN Reason Stop Dose Admin Ketorolac Tromethamine 30 mg 04/04/24 15:51 04/04/24 16:30 Ketorolac Tromethamine 30 Mg/Ml Vial IM 04/04/24 15:52 30 mg ONCE ONE Administration Medical Decision Making Medical Decision Making MDM Narrative: 48 yo right hand dominant female with history of known carpal tunnel syndrome (bilateral w/ plan for surgery w/ Dr. Dowell on 04/19) who presents to the ER for evaluation of worsening right thumb pain for the past several weeks. She states she called Dr. Dowell office who recommended she come to the ER and get x-rays X-ray done, pending read - patient would like to be discharged and will f/u with Dr. Dowell in the office placed in thumb spica splint and she reports relief Differential Diagnosis Differential Diagnoses: The differential diagnosis associated with the presentation includes osteoarthritis, basal joint arthritis, gamekeepers thumb, RA, ligamentous injury, dequervains tenosynovitis Independent Interpretation I performed an independent interpretation of an: Plain X-Ray Interpretation: no acute fx or dislocation, agree w/ radiology read Radiology Impression Discussion of test interpretation with radiology: I have reviewed the radiologist's reading. Radiologist Impression: EXAMINATION: XR HAND, RIGHT CLINICAL INFORMATION: Thumb pain. COMPARISON: None available. TECHNIQUE: PA, lateral, and oblique views of the right hand. FINDINGS: There is mild loss of PIP joint space with periarticular spurring first digit. Minimal loss of PIP and DIP joint spaces of second through fifth digits is noted without bony erosive changes. No visible acute fracture or dislocation seen. The soft tissues are normal. XR/XR hand RT min 3V IMPRESSION: Mild degenerative changes PIP and DIP joints second through fifth digit and PIP joint first digit. No visible acute fracture or dislocation seen. External Record Review External record reviewed: Outpatient record, Prior outpatient labs and Prior outpatient radiology Prescription Management I considered prescription management with: Pain Medication Chronic Conditions Patient?s care impacted by: Other (carpal tunnel syndrome) Critical Care Time Critical Care Time Critical Care Time: No Discharge Plan Discharge Clinical Impression: Carpal tunnel syndrome, Pain of right thumb Patient Disposition: Home, Self-Care Instructions: Arthralgia (ED), Carpal Tunnel Surgery (DC) Additional Instructions: Continue rest, ice, NSAIDs as needed for pain. Follow-up with Dr. Dowell for further evaluation and treatment. Your x-ray was done and will be available in your chart for her to review at your next appointment. If you develop new or worsening symptoms call 911 or come back to the ER for further evaluation. Prescriptions: No Action varenicline 0.5 mg tablet 0.5 mg PO BID acetaminophen [Tylenol 8 Hour] 650 mg tablet extended release 650 mg PO Q12H atorvastatin 80 mg tablet 80 mg PO BEDTIME losartan-hydrochlorothiazide 50-12.5 mg tablet 1 tab PO DAILY Interventions: ED Discharge Assessment Last Done: 04/04/24 18:37 Discharge Date/Time: 04/04/24 18:38 Print Language: Italian
[2024-04-04] MEDS: Ketorolac Tromethamine 30 MG/ML VIAL IM (16:30)
[2024-04-04 18:37] VITALS: BP 140/82; PULSE 82; RESP 16; TEMP 36.3; O2SAT 99
== END 2024-04-04 18:38 | disposition home or self-care (01) ==
PROVIDERS: Emergency Provider Emergency Medicine; PCP Internal Medicine
DX: G56.01 Carpal tunnel syndrome, right upper limb (principal); M79.644 Pain in right finger(s)
CPT/HCPCS: 29130; 73130; 96372; 99283; 99284; J1885

== ENCOUNTER 2024-04-18 10:32 | Day surgery (SDC) | payer MEDICAID, SELFPAY ==
[2024-04-18 10:54] VITALS: BMI 38.4
[2024-04-18 10:56] VITALS: BP 153/71; PULSE 88; RESP 18; TEMP 36.6; O2SAT 97
--- NOTE | 2024-04-18 13:12 | MHC.SHP ---
Pre-Procedural Eval Section A - 24 Hr Update-Section A only Date of Service: 04/18/24 The patient is an INPATIENT: No Changes since office visit: No Cold of Flu in the past 2 weeks, No New Medical Problems, No Changes in Medication and No Patient answered all questions The patient has been examined within 24 hours of the surgical procedure. The History & Physical has been completed within 30 days and I have reviewed it.: Yes Section B - Complete if H&P > 30 days Chief Complaint: Carpal tunnel syndrome, right upper limb Allergies: Allergies Allergy/AdvReac Type Severity Reaction Status Date / Time acetaminophen [From VICODIN] Allergy Unknown NAUSEA & Verified 04/18/24 10:58 VOMITING naproxen [NAPROXEN] AdvReac Intermediate HEADACHE Verified 04/18/24 10:58 From VICODIN Allergy Unknown NAUSEA & Uncoded 04/18/24 10:58 VOMITING Plan I have reviewed the history and physical and performed a pertinent physical examination on my patient. No changes have occurred unless specified. Time Spent With Patient Time: Total time managing care of this patient today ____ minutes.
--- NOTE | 2024-04-18 13:12 | W.PM.OPN ---
Operative Note Operative Note Date of Service: 04/18/24 Narrative: Preop diagnosis: 1. Right Carpal tunnel syndrome Postop diagnosis: same Procedure: 1. Right Carpal tunnel release Surgeon: Saima Dowell MD Anesthesia: local block using 1% lidocaine with epinephrine Findings: Thickened transverse carpal ligament. EBL: Less than 5 mL Specimens: None Complications: None Disposition: Brought to recovery room in stable condition Plan: Follow-up for 10-14 days for wound check and suture removal Indications: The patient is 48 years old, with right carpal tunnel syndrome that has been unresponsive to nonoperative management. The risks and benefits of operative treatment including but not limited to risk of damage to blood vessels, nerves, tendons, infection, persistent pain, persistent symptoms, or possible need for additional surgery were discussed with the patient and the patient wishes to proceed with surgery. Procedure: Once consent was obtained a local block was performed using a combination of 1% lidocaine with epinephrine. The patient was then brought back to the operating suite and placed on the operative table in supine position. The right upper extremity was prepped and draped in a standard surgical fashion. Once assured that we had a good block, a 2.0 cm longitudinal incision was made centered over the carpal tunnel. The incision was made through the skin to the subcutaneous tissues using a #15 blade. Dissection was made down to the level of the transverse carpal ligament with care being taken to protect the palmar cutaneous nerve. Once the transverse carpal ligament was clearly visualized, a longitudinal incision was made in the transverse carpal ligament 1st using a #15 blade, then using tenotomy scissors under direct visualization. Care was taken to look for and protect the motor branch of the median nerve when seen in this area. Once satisfied with our carpal tunnel release the wound was copiously irrigated with normal saline and hemostasis was obtained with a brief period of local pressure. The skin edges were reapproximated with some 5.0 nylon suture material and a sterile dressing was applied. The patient appears to have tolerated the procedure well and with no complications. All digits were well vascularized at the conclusion of the case.
[2024-04-18 13:21] VITALS: BP 118/65; PULSE 73; RESP 15; TEMP 36.6; O2SAT 98
== END 2024-04-18 13:24 | disposition home or self-care (01) ==
PROVIDERS: PCP Internal Medicine; Visit Provider Orthopaedic Surgery
PROC: (CPT 64721; principal; 2024-04-18 11:30)
DX: G56.01 Carpal tunnel syndrome, right upper limb (principal); R20.0 Anesthesia of skin; R53.1 Weakness; M19.041 Primary osteoarthritis, right hand; Z88.8 Allergy status to other drugs, medicaments and biological substances; Z88.5 Allergy status to narcotic agent; Z87.891 Personal history of nicotine dependence
CPT/HCPCS: 64721; J0171

== ENCOUNTER → 2024-04-18 10:32 | Outpatient (BNV) | payer MEDICAID, SELFPAY | PROVIDERS: PCP Internal Medicine; Visit Provider Orthopaedic Surgery | DX: G56.01 Carpal tunnel syndrome, right upper limb (principal) | CPT/HCPCS: 64721 ==

== ENCOUNTER 2024-05-04 13:35 | Outpatient (AMB) | payer MEDICAID, SELFPAY ==
--- NOTE | 2024-05-04 13:43 | A.OFFVIS_ITS ---
Vital Signs 05/04/24 13:45 Height 4 ft 11 in Weight 190 lb BMI 38.4 Handedness Right Intake Visit Reasons: PO RT CTR 04/18/24 AR Intake Note: Clarisse is a 48 year old right hand dominant female who presents today for her first post operative visit s/p Right Carpal Tunnel Release 04/18/24 AR. Patient reports she has not felt numbness and tingling but is expressing her main concern and pain is mainly at the base of her thumb and radiates into the ulnar aspect of the left wrist. She is having burning and throbbing sensations/pains and occasionally has to put pressure at the base of her thumb to relieve this pain. Certain movement causes sharp pains taht shoot through the thumb and wrist and she also has clicking. Tylenol offers her no relief. She states she was seen in the [facility] ED on 04/04/24 before her surgery where they took x-rays of her right thumb and was told they would be sent to Dr Dowell. Hx of broken right arm as a child, concerned if this has to do with her pains. Allergies acetaminophen [From VICODIN] Allergy (Unknown, Verified 05/04/24 13:52) NAUSEA & VOMITING naproxen [NAPROXEN] Adverse Reaction (Intermediate, Verified 05/04/24 13:52) HEADACHE From VICODIN Allergy (Unknown, Uncoded 04/18/24 10:58) NAUSEA & VOMITING HPI HPI PO RT CTR 04/18/24 AR: Details: Patient is a 48-year-old right-hand dominant female who presents for 2 week postop appointment status post right carpal tunnel release on 04/18/[address] Dowell. Patient reports that she is doing well, and then her numbness and tingling in the median nerve distribution of the right hand has completely resolved. However, she reports that she is still experiencing consistent pain on the dorsal and radial aspect of the base of the right thumb, which has been persistent for at least 1 year. 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 Patient was previously given a brace to wear, but she feels that this does not help significantly. [facility] Medical History Hypercholesteremia Hypertension Surgical History H/O tubal ligation Family History Unknown No problems noted. 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 Good APB muscle firing and good finger cross. Vascular: Capillary refill brisk. ROM: Patient can make a fist and extend all their digits. Skin: Well-healing incision site from carpal tunnel release procedure on 04/18/2024 Pain: Patient reports tenderness palpation about the right basal joint. Negative Va on the right General: No ecchymosis. No erythema or evidence of infection. Results Reviewed Results Reviewed: X-rays obtained in the office today and independently reviewed by me, Mahendra Ontiveros PA-C, demonstrate no fracture or acute bony abnormality. Assessment & Plan Assessment & Plan (1) Carpal tunnel syndrome of right wrist: Code(s): G56.01 - Carpal tunnel syndrome, right upper limb Category: Medical Plan 1. Carpal tunnel syndrome, right DOS 04/18/2024 Patient is doing very well postoperatively Patient is educated about the typical postoperative course Patient is informed that this recent increase in right thumb pain might be a result of surgery, and then it may begin to resolve on its own. Patient is told to make a new appointment in 4-6 weeks for evaluation of right thumb pain. Patient will follow-up p.r.n. for carpal tunnel release, sooner if any acute concerns Coding Level of Care Code Global (66156) Diagnoses Carpal tunnel syndrome of right wrist G56.01
[2024-05-04 13:45] VITALS: BMI 38.4
== END 2024-05-04 14:14 | disposition home or self-care (01) ==
PROVIDERS: PCP Internal Medicine
DX: G56.01 Carpal tunnel syndrome, right upper limb (principal)
CPT/HCPCS: 99024

== ENCOUNTER → 2024-05-04 13:35 | Outpatient (BNVA) | payer MEDICAID, SELFPAY | PROVIDERS: PCP Internal Medicine | DX: Z09 Encounter for follow-up examination after completed treatment for conditions other than malignant neoplasm (principal); M79.644 Pain in right finger(s); Z86.69 Personal history of other diseases of the nervous system and sense organs | CPT/HCPCS: 99212 ==

== ENCOUNTER 2024-05-10 13:50 | Outpatient (AMB) | payer MEDICAID, SELFPAY ==
[2024-05-10 13:53] VITALS: BP 112/74; PULSE 74; BMI 38.7
--- NOTE | 2024-05-10 13:53 | MHC.OFFVIS ---
Vital Signs 05/10/24 13:53 Height 4 ft 11 in Weight 191 lb 12.835 oz BMI 38.7 BP 112/74 Blood Pressure Location Lt brachial Position Sitting Pulse 74 Pulse Source Pulse Oximeter Intake Visit Reasons: 6 mth fu Software Integration Developer Required: No Accompanied by: Self / Same As Patient Allergies acetaminophen [From VICODIN] Allergy (Unknown, Verified 05/04/24 13:52) NAUSEA & VOMITING naproxen [NAPROXEN] Adverse Reaction (Intermediate, Verified 05/04/24 13:52) HEADACHE From VICODIN Allergy (Unknown, Uncoded 04/18/24 10:58) NAUSEA & VOMITING Medication List - Last Reconciled 05/10/24 by Wang Roger MD acetaminophen ER (Tylenol 8 Hour) 650 mg PO Q12H atorvastatin 80 mg PO BEDTIME metoprolol succinate ER 100 mg PO DAILY HPI Comments Details: Clarisse returns for follow-up. In the past, she was seen regarding chest pains. She continues to have the same pain. It is in the lower part of the breast where her bra touches the ribs. Very positional and can happen when she is bending down, twisting extra. There is no prior history of any coronary disease or myocardial infarction or cardiomyopathy. History of smoking but she states these days she smokes weed rather. She is overweight. Has completed an echocardiogram and stress test. Patient is adopted and hence no family history. [facility] Medical History Hypercholesteremia Hypertension Surgical History H/O tubal ligation Family History Unknown No problems noted. 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 Reproductive History Menstrual Age of Menarche: 14 Review of Systems Const Denies chills, Denies fatigue, Denies fever(s), Denies weight gain and Denies weight loss Card Denies chest pain, Denies leg edema, Denies lightheadedness, Denies palpitations, Denies dyspnea on exertion and Denies orthopnea Resp Denies cough and Denies dyspnea on exertion GI Denies hematochezia and Denies change in stool character Musc Denies muscle weakness and Denies radiating pain into limb Endo Denies fatigue and Denies palpitations Physical Exam Vital Signs: Last Vital Signs Pulse 74 05/10/24 13:53 BP 112/74 05/10/24 13:53 BMI result Body Mass Index 38.7 Const General: comfortable and no acute distress Orientation/consciousness: patient oriented x3 HEENT Other: Unremarkable Head: Yes normal to inspection Neck Neck: Yes normal visual inspection Chest Chest palpation & inspection: normal inspection of the chest Resp Auscultation: clear to auscultation bilaterally Cardio Palpation: normal PMI Heart sounds: S1 normal heart sound present, S2 normal heart sound present, no gallops, no murmurs and no rubs GI Palpation (GI): Soft to palpation Back/Spine/Pelvis Other: unremarkable Skin General skin exam: no rashes or lesions noted Neuro General: patient oriented x3 Extrem General: Yes normal to inspection Psych Mental Status: mental status grossly normal Assessment & Plan Assessment & Plan (1) Precordial chest pain: Code(s): R07.2 - Precordial pain Category: Medical Plan In the echocardiogram, LVEF 55-60%. Normal peak global longitudinal strain. No significant valvular findings and otherwise unremarkable. In the exercise stress test, she reached up to 9.7 METS, reached 96% of target heart rate with no chest discomfort, no EKG changes and unremarkable echocardiographic findings. Based on description of positional changes as well as above findings, likely musculoskeletal. She is also tender to touch in that area. Will hold off any further cardiac workup at this time. Reassurance only. Coding Level of Care Code Est Pt Level 3 (64061) Diagnoses Precordial chest pain R07.2
== END 2024-05-10 14:08 | disposition home or self-care (01) ==
PROVIDERS: PCP Internal Medicine; Supervising Provider Internal Medicine; Visit Provider Internal Medicine
DX: R07.2 Precordial pain (principal)
CPT/HCPCS: 99213

== ENCOUNTER → 2024-05-10 13:50 | Outpatient (BNVA) | payer MEDICAID, SELFPAY | PROVIDERS: PCP Internal Medicine; Visit Provider Internal Medicine | DX: R07.2 Precordial pain (principal) | CPT/HCPCS: 99212 ==

== ENCOUNTER 2024-06-08 08:54 | Outpatient (REF) | payer MEDICAID, SELFPAY ==
--- NOTE | ~2024-06-08 | XR_ITS ---
EXAMINATION: XR HAND, RIGHT CLINICAL INFORMATION: Pain in right hand, attention right thumb. COMPARISON: 04/04/2024. TECHNIQUE: PA, lateral, and oblique views of the right hand. FINDINGS: Alignment is anatomic. Mineralization appears normal. Minimal degenerative changes at the first CMC. Minimal joint space narrowing in the first PA and second through fifth PIP and DIP joints similar to prior. Mild erosion along the radial side of the first proximal phalanx at the IP joint. No focal soft tissue swelling. No visible fracture. XR/XR hand RT min 3V IMPRESSION: Minimal degenerative changes in the right hand. Mild erosion at the first IP joint. Electronically signed by: Arturo Shetty MD 07/11/2024 11:19 AM EDT
== END 2024-06-08 08:55 | disposition home or self-care (01) ==
LOC: HO.HOSX 08:54
DX: M24.141 Other articular cartilage disorders, right hand (principal); M85.841 Other specified disorders of bone density and structure, right hand
CPT/HCPCS: 73130; 99212

== ENCOUNTER 2024-06-08 13:58 | Outpatient (AMB) | payer MEDICAID, SELFPAY ==
--- NOTE | 2024-06-08 14:33 | A.OFFVIS_ITS ---
Intake Visit Reasons: New prob- RT basal thumb pain Intake Note: Clarisse is a 48 year old right hand dominant female who presents today for a evaluation of her right thumb/hand pain. Hx of injection from her PCP 03/2024. Hx of right hand CTR. She states that - . Patient has tried Tylenol and injection with no relief and it made her pain worse. She states Allergies acetaminophen [From VICODIN] Allergy (Unknown, Verified 06/08/24 14:38) NAUSEA & VOMITING naproxen [NAPROXEN] Adverse Reaction (Intermediate, Verified 06/08/24 14:38) HEADACHE From VICODIN Allergy (Unknown, Uncoded 04/18/24 10:58) NAUSEA & VOMITING HPI HPI New prob- RT basal thumb pain: Details: Patient is a 48-year-old female who presents for evaluation of right thumb and wrist pain, ongoing for ?a few months?. The patient reports that, in approximately March, she was given an injection into her thumb by her primary care provider, although the patient is unable to localize where exactly the injection was or what the injection was meant for. The patient reports that she does not experience any relief of the pain in the base of her right thumb since time of injection. The patient inquires about any other potential treatment options available to her, but would like to avoid surgery if possible. No other acute complaints or concerns at this time. [facility] Medical History Hypercholesteremia Hypertension Surgical History H/O tubal ligation Family History Unknown No problems noted. 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 Neuro: Median, ulnar, radial nerves motor and sensory intact and sensation is normal to the tips of all digits. Vascular: Cap refill brisk Pain: Patient reports pain at the base of the right thumb with flexion or extension. Mildly tender to palpation. No tenderness to palpation of the 1st dorsal compartment ROM: Range of motion of the right hand full and intact, but painful Skin: No lacerations or abrasions. General: No ecchymosis, erythema, or evidence of infection. Psych: Appears grossly normal Affect normal Attitude cooperative Psych Appearance: grossly normal Mental Status: mental status grossly normal Results Reviewed Results Reviewed: X-rays obtained in the office today and independently reviewed by me, Mahendra Ontiveros PA-C, demonstrate mild degenerative changes at the basal joint of the right thumb. No fracture or acute bony abnormality noted. Assessment & Plan Assessment & Plan (1) Arthritis of carpometacarpal (CMC) joint of right thumb: Code(s): M18.11 - Unilateral primary osteoarthritis of first carpometacarpal joint, right hand Category: Medical Plan 1. Basal joint arthritis of right thumb, mild Patient is educated about this condition and the treatment options available However, as the patient is unable to recall the exact date in March when she had the injection, and it is not in our record, she is informed that she is not eligible for an injection at this time, as she may be within 3 months from her most recent injection Patient does state that she had minimal relief with previous injection, but would like to try again if possible Patient is asked if she can get the records of this injection, so that we know the exact date of previous injection and know that she will be 3 months out at next visit Patient will obtain these records from her Primary Care Provider In the meantime, she is provided with a comfort cool thumb spica brace and referred to occupational hand therapy for range of motion, strengthening, stabilization of the right hand, particularly the right, and basal joint Patient will follow-up in 4 weeks with records of previous injection for reassessment and potential discussion of further treatment options, sooner with any acute concerns Orders: Orders XR hand RT min 3V 06/08/24 M79.641 - Pain in right hand OT Evaluation and Treatment 06/08/24 M18.11 - Unilateral primary osteoarthritis of first carpometacarpal joint, right hand Coding Level of Care Code Est Pt Level 3 (55916) Diagnoses Arthritis of carpometacarpal (CMC) joint of right thumb M18.11
== END 2024-06-08 15:14 | disposition home or self-care (01) ==
PROVIDERS: PCP Internal Medicine
DX: M18.11 Unilateral primary osteoarthritis of first carpometacarpal joint, right hand (principal)
CPT/HCPCS: 99213

== ENCOUNTER 2024-07-13 10:19 | Outpatient (AMB) | payer MEDICAID, SELFPAY ==
--- NOTE | 2024-07-13 10:28 | MHC.OFFVIS ---
Vital Signs 07/13/24 10:29 Height 4 ft 11 in Weight 198 lb BMI 40.0 Handedness Right Intake Visit Reasons: OV- RT basal thumb pain Intake Note: Clarisse is a 48 year old female who presents today for a follow up visit for arthritis of her CMC joint of her right thumb. Patient reports constant daily pain in her right thumb. Patient has difficulty wiping herself in the bathroom, showering, cooking and other daily living task due to her pains. She has to pause and stop what she is doing to try to get relief or avoid anything that would exacerbate her symptoms. She wears her brace daily but says it causes pain where her right CTR was done. She reports intermittent shooting pain in her index finger and pinky finger that radiates into her wrist. She started OT this Thursday. Allergies acetaminophen [From VICODIN] Allergy (Unknown, Verified 07/13/24 10:38) NAUSEA & VOMITING naproxen [NAPROXEN] Adverse Reaction (Intermediate, Verified 07/13/24 10:38) HEADACHE From VICODIN Allergy (Unknown, Uncoded 07/13/24 10:38) NAUSEA & VOMITING HPI HPI OV- RT basal thumb pain: Details: Patient is a 48-year-old female who presents for follow-up evaluation of right thumb pain, ongoing since early this year. The patient reports that the OT that was ordered at previous visit has not started yet, and then her 1st appointment is on Thursday. The patient states that she is also very frustrated with her primary care provider, as she states that her previous injections were in her right hand, but his documentation says they were in her left hand. Patient also expresses that she has some apprehension about getting another injection today, as previous injections were fairly painful. Patient also states that she does occasionally get shooting pains from the center of her right palm down into the wrist. The patient also reports that her carpal tunnel syndrome on the left has gotten significantly worse since last evaluation, and her symptoms are now intermittent, but daily, and much worse night. The patient reports that she would like to discuss surgical intervention on the left side. No other acute complaints or concerns at this time. [facility] Medical History Hypercholesteremia Hypertension Surgical History H/O tubal ligation Family History Unknown No problems noted. 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 Neuro: Patient reports normal sensation of the tips of all digits of the right hand this time Vascular: Cap refill brisk Pain: Significant tenderness to palpation about the basal joint of the right thumb Mild tenderness to palpation of the radial styloid Negative Va test Positive CMC grind ROM: Patient is able to make a closed fist and extend all digits of the right hand fully Skin: No lacerations or abrasions. General: No ecchymosis, erythema, or evidence of infection. Psych: Appears grossly normal Affect normal Attitude cooperative Left hand exam Neuro: Normal sensation of the tips of all digits of the left hand at this time No thenar or intrinsic wasting. Good APB muscle firing and good finger cross. Vascular: Capillary refill brisk. ROM: Patient can make a fist and extend all their digits. Skin: No lacerations or abrasions noted. General: No ecchymosis. No erythema or evidence of infection. Results Reviewed Results Reviewed: IMPRESSION: 1. This is an abnormal study. 2. There is electrodiagnostic evidence for bilateral moderate-severe median neuropathy at the wrist, consistent with carpal tunnel syndrome. 3. There is no electrodiagnostic evidence for ulnar neuropathy, brachial plexopathy, or cervical radiculopathy. Amber Eller MD, SUBHA Board Certified, [place] [employer] and [employer] (ABPMR) Board Certified, [place] Board of Electrodiagnostic Medicine (ABEM) Assessment & Plan Assessment & Plan (1) Arthritis of carpometacarpal (CMC) joint of right thumb: Code(s): M18.11 - Unilateral primary osteoarthritis of first carpometacarpal joint, right hand Category: Medical (2) Carpal tunnel syndrome of left wrist: Code(s): G56.02 - Carpal tunnel syndrome, left upper limb Category: Medical Plan 1. Left carpal tunnel syndrome, moderate to severe Symptoms intermittent, but daily, worse at night I educated the patient about the condition. I discussed both operative and nonoperative treatment options. The patient would like to proceed with surgery. The risks and benefits of operative treatment were discussed with the patient and the patient wishes to proceed with surgery. These risks include, but are not limited to, risk of damage to blood vessels, nerves, tendons, infection, recurrence, incomplete relief of preoperative symptoms, persistent pain, possible need for further surgery, and the risks associated with regional blocks and/or anesthesia. Plan is to take the patient to the operating room at some point in the next few weeks for the following procedures: 1. Left carpal tunnel release under local anesthesia All of the preoperative paperwork including the consent was discussed today. All of the patient's questions were answered in the clinic today. The patient understands that they will be in contact with our surgical dressing maker to discuss scheduling their procedure. Patient denies diabetes, blood thinners, asthma, heart issues, lung issues, kidney issues, or current smoking. 2. Basal joint arthritis of right thumb I discussed this condition with the patient and offered several treatment options, including but not limited to conservative management, injection, and eventually surgery if injections prove ineffective The patient would like to start OT and see if this helps to alleviate her pain and weakness in her thumb without the need for injection Patient will keep previously scheduled occupational therapy appointments for strengthening, range of motion, stabilization of the basal joint of the right thumb Patient is advised that if in 6 weeks, she is still experiencing significant pain in the basal joint of the right thumb, she should return to our office for discussion of injections and or other treatment options Patient is amenable to this plan Patient will follow-up in 6 weeks for reassessment, sooner with any acute concerns Coding Level of Care Code Est Pt Level 4 (75912) Diagnoses Arthritis of carpometacarpal (CMC) joint of right thumb M18.11 Carpal tunnel syndrome of left wrist G56.02
[2024-07-13 10:29] VITALS: BMI 40.0
== END 2024-07-13 11:15 | disposition home or self-care (01) ==
PROVIDERS: PCP Internal Medicine
DX: M18.11 Unilateral primary osteoarthritis of first carpometacarpal joint, right hand (principal); G56.02 Carpal tunnel syndrome, left upper limb
CPT/HCPCS: 99214

== ENCOUNTER → 2024-07-13 10:19 | Outpatient (BNVA) | payer MEDICAID, SELFPAY | PROVIDERS: PCP Internal Medicine | DX: M18.11 Unilateral primary osteoarthritis of first carpometacarpal joint, right hand (principal); G56.02 Carpal tunnel syndrome, left upper limb | CPT/HCPCS: 99212 ==

== ENCOUNTER 2024-08-17 13:00 | Outpatient (RCR) | payer MEDICAID, SELFPAY ==
--- NOTE | 2024-07-15 13:52 | MHC.OT.EP ---
[address] [phone] Occupational Therapy Plan of Care Patient Name: Clarisse Petersen Date of Evaluation: 07/15/24 Diagnosis: R BASAL JOINT OA Pain Location: 5-6/10 AT REST 10/10 WITH USE SHARP TO BASE OF THUMB Pain Score: 5-10/10 Pain Scale Used: Numeric (0 - 10) Aggravating Factors: UNSURE Alleviating Factors: USING HEAT/COLD COMPRESS WITH MINIMAL RELIEF OTC TYLENOL Assessment: MS PETERSEN REPORTS A ONE YEAR HISTORY OF R THUMB PAIN. SHE HAS DIFFICULTIES IDENTIFYING WHAT ACTIVITIES CAUSE HER PAIN TO INCREASE, YET STATES IT CAN BE HIGH 10/10. SHE ARRIVES TO OT EVALUATION WITH A PRE-CORIN HAND BASED CMC ORTHOSIS. SHE EXPRESSES DIFFICULTIES PERFORMING DAILY TASKS WHEN WORN. SKILLED OT IS WARRANTED TO PROVIDE Pt EDUCATION ON ACTIVITY MODIFICATIONS, JOINT PROTECTION STRATEGIES, WELL IMPROVING STABILITY, STRENGTH AND PARTICIPATION IN IADLs. SHE IS CURRENTLY REPORTING A 93% LIMITATION PER THE QUICK DASH ASSESSMENT. Frequency and Duration: The patient will be seen 2X/WEEK FOR 4 WEEKS Short Term Goals: IND HEP IND JT PROTECTION, ACTIVITY MODIFICATIONS IND USE OF ORTHOSIS IND HEAT MODALITIES, INCLUDING POSSIBLE HOME PARAFFIN UNIT Demolition Expert Goals: DEMO APPROPRIATE RUE USE DURING EXERCISE ROUTINE (IE: HOLDING DB) QUICK DASH <50% R GROSS GRASP >25 POUNDS Treatment Plan: Therapeutic Exercise Therapeutic Activity Home Exercise Program Splinting Neuro Re-ed Patient Education Desensitization/Sensory Re-ed Edema Control ADL Training Ultrasound NMES Iontophoresis Paraffin Fluidotherapy MHP Cold Packs Joint Mobilization Soft Tissue Mobilization Kinesiotaping Other (see comments) Electronically Signed By: ANNA RITCHIE OTR/L Please Sign and return to therapist. Thank you once again for your referral.
--- NOTE | 2024-08-17 14:01 | MHC.OT.DC ---
[address] [phone] F: [phone] Occupational Therapy Discharge Note Patient Name: Clarissepasquale Felder Provider: Mahendra Ontiveros Diagnosis: OA in (R) hand Date of Surgery: Date of Evaluation: 07/15/24 Date of Discharge: 08/17/24 Treatments to Date: 7 Cancellations to Date: 0 No Shows to Date: 0 Discharge Status: Recommend MD Follow-up Discharge Summary: Pt is not progressing in therapy. Pt has been educated on JPT, orthosis use, and given an HEP. Recommend f/u with MD for further evaluation and pain management intervention. Electronically Signed By: Jelly Amin OT/s Reviewed/agree with student documentation: Yes Therapist: KAIT DUARTE/Irina Please Sign and return to therapist, thank you for your referral.
--- NOTE | 2024-08-17 14:03 | MHC.OT.DC ---
[address] [phone] F: [phone] Occupational Therapy Discharge Note Patient Name: Clarisse Eran Felder Provider: Mahendra Ontiveros Diagnosis: OA in (R) hand Date of Evaluation: 07/15/24 Date of Discharge: 08/17/24 Treatments to Date: 7 Cancellations to Date: 0 No Shows to Date: 0 Discharge Status: Recommend MD Follow-up Discharge Summary: Pt is not progressing in therapy. Pt has been educated on JPT, orthosis use, and given an HEP. Recommend f/u with MD for further evaluation and pain management intervention. Electronically Signed By: Jelly Amin OT/s Reviewed/agree with student documentation: Yes Therapist: KAIT DUARTE/Irina Please Sign and return to therapist, thank you for your referral.
== END 2024-08-17 15:05 | disposition home or self-care (01) ==
LOC: HO.OT 13:00
PROVIDERS: PCP Internal Medicine
DX: M18.11 Unilateral primary osteoarthritis of first carpometacarpal joint, right hand (principal)
CPT/HCPCS: 29130; 97110; 97140; 97165; 97530; 97760

== ENCOUNTER 2024-08-24 08:53 | Outpatient (AMB) | payer MEDICAID, SELFPAY ==
--- NOTE | 2024-08-24 08:55 | MHC.OFFVIS ---
Intake Visit Reasons: OV-RT basal thumb pain-follow up Intake Note: Clarisse is a 48 year old female who presents today for a follow up visit for arthritis of her CMC joint of her right thumb. Patient reports she completed OT and states that did not provider her with relief. Pt states she has pain in her right thumb and states recently the pain is in her palm as well. Pt states she did have carpal tunnel release and did have an injection in the past. Allergies acetaminophen [From VICODIN] Allergy (Unknown, Verified 08/24/24 08:55) NAUSEA & VOMITING naproxen [NAPROXEN] Adverse Reaction (Intermediate, Verified 08/24/24 08:55) HEADACHE From VICODIN Allergy (Unknown, Uncoded 08/24/24 08:55) NAUSEA & VOMITING HPI HPI OV-RT basal thumb pain-follow up: Details: Patient is a 48-year-old female who presents for follow-up evaluation of right basal joint and thumb pain. Patient states that occupational therapy and the comfort cool brace did help somewhat, but she does not feel she has had adequate relief. The patient would like to explore a basal joint injection today. Of note, the patient reports that she would like to postpone her left carpal tunnel release, as she would like to achieve good recovery in her right thumb before any potential surgical intervention for her bilateral carpal tunnel syndrome. No other acute complaints or concerns at this time. [facility] Medical History Hypercholesteremia Hypertension Surgical History H/O tubal ligation Family History Unknown No problems noted. 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 Neuro: Patient reports normal sensation of the tips of all digits of the right hand this time Vascular: Cap refill brisk Pain: Significant tenderness to palpation about the basal joint of the right thumb Mild tenderness to palpation of the radial styloid Mildly positive Va test on the right Positive CMC grind ROM: Patient is able to make a closed fist and extend all digits of the right hand fully Skin: No lacerations or abrasions. General: No ecchymosis, erythema, or evidence of infection. Psych: Appears grossly normal Affect normal Attitude cooperative Left hand exam Neuro: Normal sensation of the tips of all digits of the left hand at this time No thenar or intrinsic wasting. Good APB muscle firing and good finger cross. Vascular: Capillary refill brisk. ROM: Patient can make a fist and extend all their digits. Skin: No lacerations or abrasions noted. General: No ecchymosis. No erythema or evidence of infection. Office Procedures Joint Injection/Aspiration Joint Injection/Aspiration Details: Right basal joint injection Primary Site: right thumb Prep: site was prepped using aseptic technique, ethochloride spray was applied and injection warnings given Injected: 40 mg of, DepoMedrol, with 0.5 mL of and 1% plain lidocaine Procedure: The patient tolerated the procedure well and there was some relief with the local anesthesia Coding - Small Joint Procedure code (CPT) selection complete Assessment & Plan Assessment & Plan (1) Arthritis of carpometacarpal (CMC) joint of right thumb: Code(s): M18.11 - Unilateral primary osteoarthritis of first carpometacarpal joint, right hand Category: Medical (2) Carpal tunnel syndrome of left wrist: Code(s): G56.02 - Carpal tunnel syndrome, left upper limb Category: Medical Plan 1. Basal joint arthritis of right thumb I once again discussed the treatment options available for basal joint arthritis, and the patient would like to proceed with a steroid injection The risks and benefits of a steroid injection including but not limited to risk of damage to blood vessels, nerve, tendon, infection, skin bleaching, persistent or worsening pain, and failure to improve symptoms were discussed with the patient and they wish to proceed with the steroid injection. Once consent was obtained the skin over the dorsum of the right basal joint was sterilely prepped. The joint was then injected with a combination of 1 mL of 40 mg/ml Depo-Medrol and 1% plain Lidocaine. The patient appears to have tolerated the procedure well and with no complications. SHe had good early relief before leaving clinic today. SHe knows that they may not have another steroid injection into this joint for least 4 months. 2. Carpal tunnel syndrome, left Symptoms intermittent, but daily, worse at night Patient states she would like to reschedule previously scheduled left carpal tunnel release until early next year, as she wants to have good relief of her basal joint pain prior to any surgical intervention for carpal tunnel Patient is educated on the potential effects of waiting too long to have carpal tunnel release, namely dense numbness that does not resolve after surgery and muscle wasting Patient states understanding of these risks Patient will meet with our surgery schedulers today to postpone her surgery 3. Carpal tunnel syndrome, right symptoms intermittent, daily, worse at night Patient would like to pursue operative intervention on the left prior to any intervention on the right Patient will follow-up as needed with any acute concerns Coding Level of Care Code Est Pt Level 3 (28899) Diagnoses Arthritis of carpometacarpal (CMC) joint of right thumb M18.11 Carpal tunnel syndrome of left wrist G56.02 CPT Codes Coding - 58747 - Small joint: 18468 - Small Joint ([id number])
== END 2024-08-24 09:34 | disposition home or self-care (01) ==
PROVIDERS: PCP Internal Medicine
DX: M18.11 Unilateral primary osteoarthritis of first carpometacarpal joint, right hand (principal); G56.02 Carpal tunnel syndrome, left upper limb
CPT/HCPCS: 20600; 99213

== ENCOUNTER → 2024-08-24 08:53 | Outpatient (BNVA) | payer MEDICAID, SELFPAY | PROVIDERS: PCP Internal Medicine | DX: G56.02 Carpal tunnel syndrome, left upper limb (principal) | CPT/HCPCS: 20600; 99212; J1010; J2003 ==

== ENCOUNTER 2024-08-31 10:50 | Outpatient (REF) | payer MEDICAID, SELFPAY | END 2024-08-31 10:51 | disposition home or self-care (01) | LOC: HO.US 10:50 | PROVIDERS: PCP Internal Medicine; Visit Provider Obstetrics & Gynecology | DX: D25.9 Leiomyoma of uterus, unspecified (principal) | CPT/HCPCS: 76830; 76856 ==

== ENCOUNTER 2024-11-30 10:08 | Outpatient (AMB) | payer MEDICAID, SELFPAY ==
--- NOTE | 2024-11-30 10:10 | A.OFFVIS_ITS ---
Intake Visit Reasons: US follow up/DO NOT RS Intensive Care Anaesthetist: Intensive Care Anaesthetist Present (Sharmin) Accompanied by: Self / Same As Patient Allergies acetaminophen [From VICODIN] Allergy (Unknown, Verified 11/30/24 10:11) NAUSEA & VOMITING naproxen [NAPROXEN] Adverse Reaction (Intermediate, Verified 11/30/24 10:11) HEADACHE From VICODIN Allergy (Unknown, Uncoded 08/24/24 08:55) NAUSEA & VOMITING HPI Comments Details: Presenting for ultrasound follow-up done few weeks ago which showed the following: Uterus: The uterus is enlarged and anteverted measuring 12.2 x 8.2 x 9.7 cm for a volume of 511 cc. The double wall endometrial thickness is 16 mm. At least 2 uterine fibroids are seen one near the fundus measuring 3.3 x 2.8 x 3.0 cm (previously 2.1 x 3.0 x 2.7 cm with another in the lower uterine segment measuring 2.1 x 2.3 x 1.7 cm (previously 2.4 x 2.2 x 2.2 cm). Adnexa: The left ovary was not seen. Adjacent to the uterus there is a 3.6 x 3.2 x 4.0 cm structure that may represent the right ovary, but could be a pedunculated fibroid. I think the likelihood is that this is indeed the ovary. No free fluid seen. The patient is still complaining of heavy menstrual cycles serious pelvic cramping would like to proceed with Mirena IUD insertion PFSH Medical History Hypercholesteremia Hypertension Surgical History H/O tubal ligation Family History Unknown No problems noted. 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 Female Reproductive History Menstrual Age of Menarche: 14 Review of Systems Const All systems reviewed & are unremarkable except as noted in HPI and below Reports as per HPI and Reports no additional complaints GI Reports no additional complaints Reports no additional complaints Assessment & Plan Assessment & Plan (1) Uterine myoma: Code(s): D25.9 - Leiomyoma of uterus, unspecified Category: Medical Plan: Discussed with the patient the findings on pelvic ultrasound & the risk of myosarcoma; discussed with the patient the options of treatment including expectant management versus hysterectomy; the pros and cons, risks benefits of each approach were discussed with the patient including the fact that in cases of myosarcoma, surgical treatment can lead to early diagnosis and positively affects the prognosis; after further discussion, the patient decided to proceed with expectant management. Will repeat pelvic ultrasound periodically. Instructions given to patient to call in case any of the following occurs: pressure symptoms, abnormal uterine bleeding, pelvic pain; and to schedule a 6 months pelvic ultrasound (order placed) and a follow-up appointment . All questions answered, the patient verbalized understanding and agreed with the plan . (2) Abnormal uterine bleeding: Code(s): N93.9 - Abnormal uterine and vaginal bleeding, unspecified Category: Medical Plan: Discussed with the patient the results of the work up done and options of treatment including Lysteda, control pills, Mirena IUD, endometrial ablation and hysterectomy. All pros, cons, risks and benefits if each option was discussed with the patient and the patient decided to go ahead with Mirena IUD so a more detailed discussion about it was conducted including mechanism of action, risks (uterine perforation, infection, injury to bladder, bowel, displacement, and others) benefits (hypo menorrhea, amenorrhea, ...). GC/CT were taken and the patient was instructed to schedule Mirena IUD insertion on day 1- 5 of next cycle . All questions answered, the patient verbalized understanding Orders: Orders US pelvic and transvaginal 6 Months D25.9 - Leiomyoma of uterus, unspecified Coding Level of Care Code Est Pt Level 3 (46140) Diagnoses Uterine myoma D25.9 Abnormal uterine bleeding N93.9
== END 2024-11-30 10:47 | disposition home or self-care (01) ==
LOC: HO.HWS 10:08
PROVIDERS: PCP Internal Medicine; Visit Provider Obstetrics & Gynecology
DX: D25.9 Leiomyoma of uterus, unspecified (principal); N93.9 Abnormal uterine and vaginal bleeding, unspecified
CPT/HCPCS: 99213

== ENCOUNTER → 2024-11-30 10:08 | Outpatient (BNVA) | payer MEDICAID, SELFPAY | PROVIDERS: PCP Internal Medicine; Visit Provider Obstetrics & Gynecology | DX: D25.9 Leiomyoma of uterus, unspecified (principal); N93.9 Abnormal uterine and vaginal bleeding, unspecified | CPT/HCPCS: 99212 ==

== ENCOUNTER 2024-12-06 16:57 | Outpatient (REF) | payer MEDICAID, SELFPAY | END 2024-12-06 16:58 | disposition home or self-care (01) | LOC: HO.HOSX 16:57 | PROVIDERS: Visit Provider Orthopaedic Surgery | DX: Z13.89 Encounter for screening for other disorder (principal) ==

== ENCOUNTER 2024-12-07 11:32 | Outpatient (REF) | payer MEDICAID, SELFPAY ==
--- NOTE | ~2024-12-07 | XR_ITS ---
EXAMINATION: XR HAND, RIGHT CLINICAL INFORMATION: M79.641 - Pain in right hand COMPARISON: June 08, 2024. TECHNIQUE: PA, lateral, and oblique views of the right hand. FINDINGS: Asymmetric joint space narrowing of the distal interphalangeal joints of the first and fifth digits. No acute cortical disruption or malalignment. No lytic or blastic lesions. XR/XR hand RT min 3V IMPRESSION: Osteoarthrosis, distal interphalangeal joints of the first and fifth digits. Electronically signed by: Fred Loza MD 12/07/2024 03:49 PM EST
== END 2024-12-07 11:33 | disposition home or self-care (01) ==
LOC: HO.HOSX 11:32
PROVIDERS: PCP Internal Medicine; Visit Provider Orthopaedic Surgery
DX: M79.641 Pain in right hand (principal); M18.11 Unilateral primary osteoarthritis of first carpometacarpal joint, right hand; G56.02 Carpal tunnel syndrome, left upper limb; Z98.890 Other specified postprocedural states
CPT/HCPCS: 20600; 73130; 99212; J1010; J2003

== ENCOUNTER 2024-12-07 11:32 | Outpatient (AMB) | payer MEDICAID, SELFPAY ==
--- NOTE | 2024-12-07 11:37 | A.OFFVIS_ITS ---
Vital Signs 12/07/24 11:43 Height 4 ft 11 in Weight 198 lb BMI 40.0 Intake Visit Reasons: OV - RT hand pain discuss options Intake Note: Clarisse is a 48 year old female who presents today for a follow up visit for arthritis of her CMC joint of her right thumb. Patient reports she completed OT and states that did not provider her with relief. Last seen with Diamante Mccray on 08/24/24 who gave patient a left thumb basal injection. States injection helped however her pain is now is now on her thumb IP and at MP joint. Allergies acetaminophen [From VICODIN] Allergy (Unknown, Verified 12/07/24 11:56) NAUSEA & VOMITING naproxen [NAPROXEN] Adverse Reaction (Intermediate, Verified 12/07/24 11:56) HEADACHE From VICODIN Allergy (Unknown, Uncoded 12/07/24 11:56) NAUSEA & VOMITING HPI HPI OV - RT hand pain discuss options: Details: Clarisse is a 48 year old right hand dominant woman who returns to discuss her right thumb pain. She was last seen by SYLVESTER Mccray and received a right basal joint injection on 08/24/24, with some relief. She finds some relief from a comfort cool brace. She complains of pain in basal and MCP joints of her thumb. She is also complaining of worsening numbness in her thumb. She denies any locking or catching. She says she has completed her course of OT, without relief. She has left carpal tunnel syndrome. She was scheduled for surgery but chose to defer this until her right hand pain has been managed. She had a right carpal tunnel release done 04/18/24, with good relief and normal sensation following her surgery. [facility] Medical History Hypercholesteremia Hypertension Surgical History H/O tubal ligation Family History Unknown No problems noted. 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 Female Reproductive History Menstrual Age of Menarche: 14 Review of Systems Const All systems reviewed & are unremarkable except as noted in HPI and below Physical Exam Vital Signs: BMI result Body Mass Index 40.0 Const General: no acute distress and alert Orientation/consciousness: patient oriented x3 Neuro General: patient oriented x3 Extrem Other: Evaluation of Right Upper Extremity: The patient is alert, oriented, and in no acute distress Neuro: Median, Ulnar, Radial nerves motor and sensory intact and sensation is normal to the tips of all digits No thenar or intrinsic wasting Good APB muscle belly firing and good finger cross Vascular: Cap refill brisk ROM: She can make a fist and extend all her digits No locking or catching No tenderness over the a1 grace Most tender about the basal joint Mild tenderness over the radial & ulnar aspect of the MCP joint MCP joint swelling MCP joint stable on exam Radiology: 3 views of the right hand were taken and viewed by me today in clinic. They show early basal joint arthritis with joint space narrowing, subchondral sclerosis, and osteophyte formation Nerve Conduction Study: IMPRESSION: 1. This is an abnormal study. 2. There is electrodiagnostic evidence for bilateral moderate-severe median neuropathy at the wrist, consistent with carpal tunnel syndrome. 3. There is no electrodiagnostic evidence for ulnar neuropathy, brachial p lexopathy, or cervical radiculopathy. Amber Eller MD, SUBHA 01/08/24 Psych Appearance: grossly normal Affect: normal affect Attitude: cooperative Office Procedures AMB Fracture Care Details: No fracture, injection Fracture Billing Code: Fracture Billing Code Assessment & Plan Assessment & Plan (1) Arthritis of carpometacarpal (CMC) joint of right thumb: Code(s): M18.11 - Unilateral primary osteoarthritis of first carpometacarpal joint, right hand Category: Medical (2) Carpal tunnel syndrome of left wrist: Code(s): G56.02 - Carpal tunnel syndrome, left upper limb Category: Medical Plan Assessment & Plan: 1. Right basal joint arthritis Date of injection: 12/07/24, 08/24/24 I educated her about this condition I discussed operative and non-operative treatment options The patient would like to proceed with a repeat injection I discussed activity modification, they should limit or avoid any heavy or repetitive pinching or gripping activities Injection #1: The risks and benefits of a steroid injection including but not limited to risk of damage to blood vessels, nerve, tendon, infection, skin bleaching, persistent or worsening pain, and failure to improve symptoms were discussed with the patient and they wish to proceed with the steroid injection. Once consent was obtained the skin over the dorsum of the Right basal joint was sterilely prepped. The joint was then injected with a combination of 1 mL of (40 mg/ml} Depo-Medrol and 1% plain Lidocaine. The patient appears to have tolerated the procedure well and with no complications. She had good early relief before leaving clinic today. She knows that they may not have another steroid injection into this joint for least 4 months. 2. Left carpal tunnel syndrome, moderate-severe Symptoms intermittent, but daily, worse at night She wants to wait until her right hand pain has resolved before scheduling surgery I educated her about the risks of delaying treatment, and she expressed understanding 3. Right carpal tunnel syndrome, S/P release DOS: 04/18/24 Pre-operative symptoms intermittent, but daily, worse at night Now with normal sensation Scribed for Saima Dowell MD by Silverio Maciel, medical esthetician, on 12/07/24 at 12:15 PM, EST. Orders: Orders XR hand RT min 3V Today M79.641 - Pain in right hand Scribe Plan - Not visible on output: Scribed for Saima Dowell MD by Silverio Maciel, medical esthetician, on [ ] at [ ], EST. Coding Level of Care Code Est Pt Level 3 (21606) Diagnoses Arthritis of carpometacarpal (CMC) joint of right thumb M18.11 Carpal tunnel syndrome of left wrist G56.02 CPT Codes Fracture Care - Fracture Billing Code: Fracture Billing Code ([id number])
[2024-12-07 11:43] VITALS: BMI 40.0
== END 2024-12-07 12:41 | disposition home or self-care (01) ==
PROVIDERS: PCP Internal Medicine; Visit Provider Orthopaedic Surgery
DX: M18.11 Unilateral primary osteoarthritis of first carpometacarpal joint, right hand (principal); G56.02 Carpal tunnel syndrome, left upper limb
CPT/HCPCS: 20600; 99213

== ENCOUNTER → 2024-12-07 11:41 | Outpatient (BNV) | payer MEDICAID, SELFPAY | PROVIDERS: PCP Internal Medicine; Visit Provider Radiology Diagnostic Radiology | DX: M19.041 Primary osteoarthritis, right hand (principal) | CPT/HCPCS: 73130 ==

== ENCOUNTER 2025-05-23 09:55 | Outpatient (REF) | payer MEDICAID, SELFPAY ==
[2025-05-23 13:14] LABS: MANUAL DIFF FLAG NO
[2025-05-23 13:49] LABS: Hematocrit 37.1 % (37.0-47.0); Hemoglobin 12.3 g/dl (12.0-16.0); Imm Gran Abs Auto 0.02 X10*3/uL (0.00-0.03); Imm Gran Pct Auto 0.3 % (0.0-0.4); Lymphocytes Absolute Auto 2.5 X10*3/uL (1.2-4.9); Mean Corpuscular HGB Conc 33.2 g/dl (31.0-35.0); Mean Corpuscular Hemoglobin 29.4 pg (27.0-33.0); Mean Corpuscular Volume 88.8 fL (80.0-98.0); NRBC Abs Auto 0.000 X10*3/uL (0.0-0.012); NRBC Pct Auto 0.0 /100WBC (0.0-0.2); Platelet Count 349 X10*3/uL (160-400); Red Blood Count 4.18 X10*6/uL (4.20-5.50); White Blood Count 6.8 X10*3/uL (4.8-10.8)
[2025-05-23 13:54] LABS: Hemoglobin A1C 144.6895 umol/L; Total Hemoglobin (HGBA1C) 3196.6351 umol/L
[2025-05-23 14:20] LABS: Alanine Aminotransferase 11 U/L (0-31); Albumin Level 4.2 g/dL (3.5-5.0); Alkaline Phosphatase 78 U/L (39-117); Anion Gap 11 (12-20); Aspartate Amino Transferase 17 U/L (5-31); Blood Urea Nitrogen 8 mg/dL (9-16); Calcium 8.9 mg/dL (8.4-10.2); Carbon Dioxide 26 mmol/L (22-29); Chloride 107 mmol/L (96-108); Cholesterol 231 mg/dL (<200); Estimated Glomerular Filt Rate > 60; HDL Cholesterol 35 mg/dL (>40); Potassium 4.1 mmol/L (3.3-5.1); Sodium 140 mmol/L (135-145); Total Protein 7.0 g/dL (6.5-8.0); Triglycerides 281 mg/dL (<150)
[2025-05-24 06:48] LABS: Follicle Stimulating Hormone 12.4 mIU/mL
== END 2025-05-23 09:56 | disposition home or self-care (01) ==
LOC: HO.10HDL 09:55
PROVIDERS: Visit Provider Internal Medicine
DX: E78.2 Mixed hyperlipidemia (principal); F17.211 Nicotine dependence, cigarettes, in remission; F32.2 Major depressive disorder, single episode, severe without psychotic features; I10 Essential (primary) hypertension; N95.1 Menopausal and female climacteric states
CPT/HCPCS: 36415; 80053; 80061; 83001; 83036; 85025

== ENCOUNTER 2025-05-30 13:04 | Outpatient (REF) | payer MEDICAID, SELFPAY ==
--- NOTE | ~2025-05-30 | US_ITS ---
CLINICAL HISTORY: D25.9 - Leiomyoma of uterus, unspecified Transabdominal and transvaginal pelvic ultrasound Bilateral ovarian Doppler studies Comparison: 08/31/2024 Findings: Uterus 11.3 x 7.1 x 9.8 cm. 2.3 x 2.5 and 3.7 x 2.9 cm fibroids. These are essentially unchanged in size. No significant free fluid. Right ovary 4.7 x 2.0 x 1.5 cm. Left ovary 2.3 x 2.5 x 2.0 cm. No significant focal abnormality. Impression: Stable uterine fibroids, otherwise unremarkable This document has been electronically signed by: Joe Mcallister MD on 05/30/2025 21:21:53
== END 2025-05-30 13:05 | disposition home or self-care (01) ==
LOC: HO.US 13:04
PROVIDERS: PCP Internal Medicine; Visit Provider Obstetrics & Gynecology
DX: D25.9 Leiomyoma of uterus, unspecified (principal)
CPT/HCPCS: 76830; 76856

== ENCOUNTER → 2025-05-30 13:08 | Outpatient (BNV) | payer MEDICAID, SELFPAY | PROVIDERS: PCP Internal Medicine; Visit Provider Radiology Diagnostic Radiology | DX: D25.9 Leiomyoma of uterus, unspecified (principal) | CPT/HCPCS: 76830; 76856 ==

== ENCOUNTER 2025-06-13 09:02 | Outpatient (AMB) | payer MEDICAID, SELFPAY ==
--- NOTE | 2025-06-13 09:08 | A.OFFVIS_ITS ---
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 States injection helped relief pain and would like to repeat injection. Allergies acetaminophen (From VICODIN) Allergy (Unknown, Verified 06/13/25 09:19) NAUSEA & VOMITING naproxen (NAPROXEN) Adverse Reaction (Intermediate, Verified 06/13/25 09:19) HEADACHE From VICODIN Allergy (Unknown, Uncoded 06/13/25 09:19) NAUSEA & VOMITING HPI HPI INJ RT hand inj last 12/07/24: Details: Clarisse is a 49 year old right hand dominant woman who returns to discuss her right basal joint arthritis. She was last seen and injected on 12/07/24, with good relief. She complains of pain in basal and MCP joints of her thumb. She had relief from her injection & comfort cool brace. She denies any locking or catching. She says she has completed her course of OT, without relief. She has been crocheting at home, which she finds painful and difficult to do. 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 She has left carpal tunnel syndrome. She was scheduled for surgery but chose to defer this until her right hand pain has been managed. She had a right carpal tunnel release done 04/18/24, with good relief and normal sensation following her surgery. [facility] Medical History Hypercholesteremia Hypertension Surgical History H/O tubal ligation Family History Unknown No problems noted. 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 /[employer] Female Reproductive History Menstrual Age of Menarche: 14 Review of Systems Const All systems reviewed & are unremarkable except as noted in HPI and below Physical Exam Vital Signs: BMI result Body Mass Index 40.0 Const General: no acute distress and alert Orientation/consciousness: patient oriented x3 Neuro General: patient oriented x3 Extrem Other: Evaluation of Right Upper Extremity: The patient is alert, oriented, and in no acute distress Neuro: Median, Ulnar, Radial nerves motor and sensory intact and sensation is normal to the tips of all digits No thenar or intrinsic wasting Good APB muscle belly firing and good finger cross Vascular: Cap refill brisk ROM: She can make a fist and extend all her digits No locking or catching No tenderness over the a1 grace Most tender about the basal joint Pos shoulder sign Pos CMC grind No 1st dorsal compartment tenderness Radiology: 3 views of the right hand were taken and viewed by me today in clinic. They show early basal joint arthritis with joint space narrowing, subchondral sclerosis, and osteophyte formation Nerve Conduction Study: IMPRESSION: 1. This is an abnormal study. 2. There is electrodiagnostic evidence for bilateral moderate-severe median neuropathy at the wrist, consistent with carpal tunnel syndrome. 3. There is no electrodiagnostic evidence for ulnar neuropathy, brachial plexopathy, or cervical radiculopathy. Amber Eller MD, SUBHA 01/08/24 Psych Appearance: grossly normal Affect: normal affect Attitude: cooperative Office Procedures AMB Fracture Care Details: No fracture, injection Fracture Billing Code: Fracture Billing Code Assessment & Plan Assessment & Plan (1) Arthritis of carpometacarpal (CMC) joint of right thumb: Code(s): M18.11 - Unilateral primary osteoarthritis of first carpometacarpal joint, right hand Category: Medical (2) Carpal tunnel syndrome of left wrist: Code(s): G56.02 - Carpal tunnel syndrome, left upper limb Category: Medical Plan Assessment & Plan: 1. Right basal joint arthritis Date of injection: 06/13/25, 12/07/24, 08/24/24 I educated her about this condition I discussed operative and non-operative treatment options The patient would like to proceed with a repeat injection I discussed activity modification, they should limit or avoid any heavy or repetitive pinching or gripping activities She should work on ROM exercises, and avoid any gripping or strengthening activities I discussed the use of assistive devices for daily activity Injection #1: The risks and benefits of a steroid injection including but not limited to risk of damage to blood vessels, nerve, tendon, infection, skin bleaching, persistent or worsening pain, and failure to improve symptoms were discussed with the patient and they wish to proceed with the steroid injection. Once consent was obtained the skin over the dorsum of the Right basal joint was sterilely prepped. The joint was then injected with a combination of 1 mL of (40 mg/ml} Depo-Medrol and 1% plain Lidocaine. The patient appears to have tolerated the procedure well and with no complications. She had good early relief before leaving clinic today. She knows that they may not have another steroid injection into this joint for least 4 months. 2. 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 I educated her about the risks of delaying treatment, and she expressed understanding 3. Right carpal tunnel syndrome, S/P release DOS: 04/18/24 Pre-operative symptoms intermittent, but daily, worse at night Now with normal sensation Scribed for Saima Dowell MD by Silverio Maciel, medical accounts receivable specialist, on 06/13/25 at 9:20 AM, EST. Coding Level of Care Code Est Pt Level 3 (63032) Diagnoses Arthritis of carpometacarpal (CMC) joint of right thumb M18.11 Carpal tunnel syndrome of left wrist G56.02 CPT Codes Fracture Care - Fracture Billing Code: Fracture Billing Code ([id number])
[2025-06-13 09:09] VITALS: BMI 40.0
== END 2025-06-13 09:38 | disposition home or self-care (01) ==
LOC: HO.HOS 09:02
PROVIDERS: PCP Internal Medicine; Visit Provider Orthopaedic Surgery
DX: M18.11 Unilateral primary osteoarthritis of first carpometacarpal joint, right hand (principal); G56.02 Carpal tunnel syndrome, left upper limb
CPT/HCPCS: 20600; 99213

== ENCOUNTER → 2025-06-13 09:02 | Outpatient (BNVA) | payer MEDICAID, SELFPAY | PROVIDERS: PCP Internal Medicine; Visit Provider Orthopaedic Surgery | DX: M18.11 Unilateral primary osteoarthritis of first carpometacarpal joint, right hand (principal); G56.02 Carpal tunnel syndrome, left upper limb | CPT/HCPCS: 20600; 99212; J1010; J2003 ==

== ENCOUNTER 2025-06-28 11:27 | Outpatient (AMB) | payer MEDICAID, SELFPAY ==
--- NOTE | 2025-06-28 11:28 | A.OFFVIS_ITS ---
Intake Visit Reasons: ultrasound results Allergies acetaminophen (From VICODIN) Allergy (Unknown, Verified 06/13/25 09:19) NAUSEA & VOMITING naproxen (NAPROXEN) Adverse Reaction (Intermediate, Verified 06/13/25 09:19) HEADACHE From VICODIN Allergy (Unknown, Uncoded 06/13/25 09:19) NAUSEA & VOMITING HPI Comments Details: The patient is scheduled telehealth visit as a follow-up regarding the pelvic ultrasound done on 05/30/2025. The patient is doing well with no complaints no pelvic pressure abnormal uterine bleeding or pain. Pelvic ultrasound showed the following: Uterus 11.3 x 7.1 x 9.8 cm. 2.3 x 2.5 and 3.7 x 2.9 cm fibroids. These are essentially unchanged in size. No significant free fluid. Right ovary 4.7 x 2.0 x 1.5 cm. Left ovary 2.3 x 2.5 x 2.0 cm. No significant focal abnormality. Impression: Stable uterine fibroids, otherwise unremarkable [facility] Medical History Hypercholesteremia Hypertension Surgical History H/O tubal ligation Family History Unknown No problems noted. 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 Location of provider rendering services: practice address Location of patient: address on file Patient Identification confirmed using: Name, : Yes Telehealth method: video Patient verbally consented to treatment: Yes Patient verbally consented to billing insurance company: Yes Patient informed of any privacy concerns related to visit: Yes Minutes spent on Phone/Video with Pt.: 3 Assessment & Plan Assessment & Plan (1) Uterine myoma: Code(s): D25.9 - Leiomyoma of uterus, unspecified Category: Medical Plan: Discussed with the patient the findings on pelvic ultrasound & the risk of myosarcoma; in addition reviewed with the patient that malignancy and pre malignancy cannot be ruled out without hysterectomy for pathological evaluation ; furthermore, explained to the patient the limitation of pelvic ultrasound and endometrial biopsy in the setting. Discussed with the patient the options of treatment including expectant management versus hysterectomy; the pros and cons, risks benefits of each approach were discussed with the patient including the fact that in cases of myosarcoma, surgical treatment can lead to early diagnosis and positively affects the prognosis; after further discussion, the patient decided to proceed with expectant management. Will repeat pelvic ultrasound periodically. Instructions given to patient to call in case any of the following occurs: pressure symptoms, abnormal uterine bleeding, pelvic pain; and to schedule a 12 months pelvic ultrasound (order placed) and a follow-up appointment . All questions answered, the patient verbalized understanding and agreed with the plan . I spent a total of 20 minutes reviewing the chart, talking to the patient via video and documenting in the medical record. Orders: Orders US pelvic and transvaginal 12 Months D25.9 - Leiomyoma of uterus, unspecified Coding Level of Care Code Tele Est Pt Level 3 (54411) Diagnoses Uterine myoma D25.9
== END 2025-06-28 13:10 | disposition home or self-care (01) ==
LOC: HO.HWS 11:27
PROVIDERS: PCP Internal Medicine; Visit Provider Obstetrics & Gynecology
DX: D25.9 Leiomyoma of uterus, unspecified (principal)
CPT/HCPCS: 99213

== ENCOUNTER 2025-10-04 08:14 | Outpatient (AMB) | payer MEDICAID, SELFPAY ==
--- NOTE | 2025-10-04 12:14 | A.OFFVIS_ITS ---
VS Expanded 10/04/25 12:24 Height 5 ft Weight 185 lb 6 oz BMI 36.2 Body Fat % 37.7 Body Fat Mass 69.8 Fat Free Mass 115.6 Visceral Fat Rating 10 Body Water % 44.4 Body Water Mass 82.2 Basal Metabolic Rate/Score 1,582 Intake Visit Reasons: [employer] SWL/MWL BMI 36.2 Allergies acetaminophen (From VICODIN) Allergy (Unknown, Verified 10/04/25 12:14) NAUSEA & VOMITING naproxen (NAPROXEN) Adverse Reaction (Intermediate, Verified 10/04/25 12:14) HEADACHE From VICODIN Allergy (Unknown, Uncoded 10/04/25 12:14) NAUSEA & VOMITING Medication List - Last Reconciled 10/04/25 by Nnamdi Huang MD acetaminophen ER (Tylenol 8 Hour) 650 mg PO Q12H ezetimibe 10 mg PO DAILY losartan-hydrochlorothiazide 50-12.5 mg 1 tab PO DAILY omeprazole 20 mg PO DAILY rosuvastatin (Crestor) 40 mg PO DAILY HPI HPI [employer] SWL/MWL BMI 36.2: Details: Start time: 12.07pm, End time: 1.07pm ?I spent 55 minutes speaking with the patient on the phone plus an additional 5 minutes reviewing and updating records for a total of 60 minutes HPI Comments Details: Previous weight loss efforts: self diet and exercise Wakes up: 8am, Sleeps: 10pm Breakfast: skips Lunch: 1-2pm (potatoes, vegetables, burgers, chicken) Dinner: 6-7pm (chicken, burgers) Snacks: 10am (chips), 4pm (chips), 8pm (nuts, fruits) Exercise: none, access to a Gym Beverages: Coffee (1 cup/d with creamer and sugar), Tea: 1-2/wk with honey and sugar), Soda: none, Juice: none, ETOH: 1/month PFSH Medical History (Updated 10/04/25 @ 12:46 by Nnamdi Huang MD) Non-insulin dependent type 2 diabetes mellitus Anxiety Depression GERD (gastroesophageal reflux disease) BMI 36.0-36.9,adult Obesity Hypercholesteremia Hypertension Surgical History H/O tubal ligation Family History Unknown No problems noted. 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 Female Reproductive History Menstrual Age of Menarche: 14 Telehealth Telehealth Telehealth Platform: Telephone Location of provider rendering services: practice address Location of patient: address on file Patient Identification confirmed using: Name, : Yes Telehealth method: voice only Patient verbally consented to treatment: Yes Patient verbally consented to billing insurance company: Yes Patient informed of any privacy concerns related to visit: Yes Minutes spent on Phone/Video with Pt.: 60 Assessment & Plan Assessment & Plan (1) Obesity: Code(s): E66.9 - Obesity, unspecified Category: Medical Qualifiers: Obesity type: due to excess calories Obesity classification: adult class 2 (BMI 35 - 39.9) Serious obesity comorbidity presence: with serious comorbidity Body mass index: BMI 36.0-36.9 Qualified Code(s): E66.812 - Obesity, class 2; Z68.36 - Body mass index [BMI] 36.0-36.9, adult Plan: 1.? Plan for lap sleeve gastrectomy. If diaphragmatic or ventral hernias are present at time of surgery, these will be repaired laparoscopically as well. I emphasized the importance of close follow-up, adherence to instructions and good communication. The surgery does not replace the need to change your lifestlyle which is the cause of the obesity problem. The surgery provides the motivation to try again to change your lifestyle, it reduces the appetite and make the transition to a better lifestyle easier and doubles the amount of weight you would lose compared to doing the lifestyle change without the surgery. You will need to be on a liquid diet with protein shakes for 2 weeks before surgery to maximize weight loss and boost your nutritional status to recover better from surgery and also for the first two weeks after surgery to let the stomach heal before we introduce other foods. After the first 2 weeks we will introduce protein bars and soft foods like scrambled eggs, cottage cheese and yogurt and after the 6th week will introduce meat, fish and cooked vegetables in small amounts. Over time you should be able to eat everything in small amounts. Side effects like nausea, vomiting, heartburn or abdominal pain are not common in the practice unless you are not following in the practice. This operation requires lifetime commitment to following in our practice and communication with me. You will much less weight and experience side effects if you don?t communicate or not following in the practice. Complications are rare and in our practice is about 1/10 of the national average. However, you can develop bleeding that may require transfusion (hasn?t happened for year in the practice), you may from complications (we did not have any deaths in the practice) and infections. Infections are usually a result of breakdown in communication or not understanding or following directions correctly. They are difficult to treat, they can happen during the first 6 weeks, they may require to be in the hospital for weeks or even months, not being able to eat by mouth and you may have drains and surgeries to try and correct the issue. Other risks and complications include possible conversion to an open procedure, leaks, small bowel obstruction, blood clots, cardiac, or pulmonary complications, as terminal manager complications such as ulcers, insufficient weight loss and vitamin deficiencies. 2. Nutritional counseling. Start with one ORGAIN protein (buy at [employer], or [employer], or [employer]) shake (HALF scoop in 8oz low fat unsweetened almond milk) at 9am- 11am, 1 protein bar (Fit Crunch protein bars, buy at [employer] or [employer]) at 12pm-2pm, another ORGAIN protein shake (HALF scoop in 8oz low fat unsweetened almond milk) at 3pm-5pm, dinner at 6pm (8 forks of protein and 8 forks of salad/vegetables) AND another another [employer] protein bar at 8pm-10pm, So you do 2 protein shakes, 2 protein bars and one meal per day. Meal to include lean meat (beef, fish, pork, turkey, chicken), or burundian yogurt, or egg whites, or beans with a salad with olive oil and fruits (berries, pears, apples, kiwi). Avoid salt, breads, potatoes, rice, pasta, desserts. 3. Each shake would be drunk slowly, like coffee in a period of 2 hours. 4. Cut each bar in 4 pieces and eat each piece in 30min ?to make each bar last 2 hours. 5. I emphasized the importance of measuring accurately the food portion and measure it when serving the food in plate 6. The meal portions include 8 full-size forks of meat and 8 full-size forks of salad. You always eat the meat portion but you can replace up to 4 forks for salad/vegetables with rice, potatoes or pasta, or a fruit ?if you like. The less you do it the better weight loss will be. 7. One full-size fork is what it can be scooped on the fork without falling aside and not what can be bit with the fork. Use regular forks like those you find in a typical restaurant. 8.? Please buy the body composition scale we discussed and send me weight measurements as soon as possible and then once a week. Always include your diet and exercise plan. 9. Start stationary bike at a resistance level of 0.0 Increase level by 1.0 every 3 min to a max level of 6.0. Stay at this level for 3 min and then return to level 0.0 and repeat same steps until 300 calories are burned. Try to do it daily. Goal is to burn 2000 calories per week on exercise 10. The best choice would be to purchase a stationary bike at home that can track calories. Let me know if you do so I can give you an exercise plan. 11.?It is important of avoiding and for at least 18 months postoperatively and has been discussed at the infosession. 12. Goal is to lose at least 1.5-2lbs per week 13. Goal to lose 10% of your weight before surgery, which is about 20lbs. Ultimate weight goal: 165lbs before surgery 14. Please follow the diet plan exactly without any change. If you don't like something about the plan or you feel hungry you need to communicate with me so I can help you revise the plan. You should not change the plan yourself 15. To be scheduled for EGD to assess the stomach's anatomy. The possibility of biopsies was discussed. Patient needs to avoid use of NSAIDs and aspirin for 1 week prior to EGD. You must be on liquids only the day before your endoscopy. Risks of perforation and bleeding was discussed with the patient. This will be an outpatient procedure with IV sedation. Orders: Orders Insulin Today E11.9 - Type 2 diabetes mellitus without complications, E66.9 - Obesity, unspecified, E78.00 - Pure hypercholesterolemia, unspecified, I10 - Essential (primary) hypertension H Pylori Breath Test Today E11.9 - Type 2 diabetes mellitus without complications, E66.9 - Obesity, unspecified, E78.00 - Pure hypercholesterolemia, unspecified, I10 - Essential (primary) hypertension Complete Blood Count Auto Diff Today E11.9 - Type 2 diabetes mellitus without complications, E66.9 - Obesity, unspecified, E78.00 - Pure hypercholesterolemia, unspecified, I10 - Essential (primary) hypertension Lipid Panel Today E11.9 - Type 2 diabetes mellitus without complications, E66.9 - Obesity, unspecified, E78.00 - Pure hypercholesterolemia, unspecified, I10 - Essential (primary) hypertension Comprehensive Met. Panel Today E11.9 - Type 2 diabetes mellitus without complications, E66.9 - Obesity, unspecified, E78.00 - Pure hypercholesterolemia, unspecified, I10 - Essential (primary) hypertension Zinc Today E11.9 - Type 2 diabetes mellitus without complications, E66.9 - Obesity, unspecified, E78.00 - Pure hypercholesterolemia, unspecified, I10 - Essential (primary) hypertension C Reactive Protein Today E11.9 - Type 2 diabetes mellitus without complications, E66.9 - Obesity, unspecified, E78.00 - Pure hypercholesterolemia, unspecified, I10 - Essential (primary) hypertension Vitamin B1 Today E11.9 - Type 2 diabetes mellitus without complications, E66.9 - Obesity, unspecified, E78.00 - Pure hypercholesterolemia, unspecified, I10 - Essential (primary) hypertension Vitamin A Today E11.9 - Type 2 diabetes mellitus without complications, E66.9 - Obesity, unspecified, E78.00 - Pure hypercholesterolemia, unspecified, I10 - Essential (primary) hypertension Vitamin D 25-OH Total Today E11.9 - Type 2 diabetes mellitus without complications, E66.9 - Obesity, unspecified, E78.00 - Pure hypercholesterolemia, unspecified, I10 - Essential (primary) hypertension ECG 12 lead EKG Today E11.9 - Type 2 diabetes mellitus without complications, E66.9 - Obesity, unspecified, E78.00 - Pure hypercholesterolemia, unspecified, I10 - Essential (primary) hypertension Hemoglobin A1c Today E11.9 - Type 2 diabetes mellitus without complications, E66.9 - Obesity, unspecified, E78.00 - Pure hypercholesterolemia, unspecified, I10 - Essential (primary) hypertension IRON PROFILE Today E11.9 - Type 2 diabetes mellitus without complications, E66.9 - Obesity, unspecified, E78.00 - Pure hypercholesterolemia, unspecified, I10 - Essential (primary) hypertension Vitamin B12 and Folate Today E11.9 - Type 2 diabetes mellitus without complications, E66.9 - Obesity, unspecified, E78.00 - Pure hypercholesterolemia, unspecified, I10 - Essential (primary) hypertension TSH reflex Free T4 Today E11.9 - Type 2 diabetes mellitus without complications, E66.9 - Obesity, unspecified, E78.00 - Pure hypercholesterolemia, unspecified, I10 - Essential (primary) hypertension Ferritin Today E11.9 - Type 2 diabetes mellitus without complications, E66.9 - Obesity, unspecified, E78.00 - Pure hypercholesterolemia, unspecified, I10 - Essential (primary) hypertension US abdomen comp w elastography Today E11.9 - Type 2 diabetes mellitus without complications, E66.9 - Obesity, unspecified, E78.00 - Pure hypercholesterolemia, unspecified, I10 - Essential (primary) hypertension XR chest 2V Today E11.9 - Type 2 diabetes mellitus without complications, E66.9 - Obesity, unspecified, E78.00 - Pure hypercholesterolemia, unspecified, I10 - Essential (primary) hypertension FL upper GI w air Today E11.9 - Type 2 diabetes mellitus without complications, E66.9 - Obesity, unspecified, E78.00 - Pure hypercholesterolemia, unspecified, I10 - Essential (primary) hypertension Referrals Behavioral Health Referral E11.9 - Type 2 diabetes mellitus without complications, E66.9 - Obesity, unspecified, E78.00 - Pure hypercholesterolemia, unspecified, I10 - Essential (primary) hypertension Nutrition/Dietitian Referral E11.9 - Type 2 diabetes mellitus without complications, E66.9 - Obesity, unspecified, E78.00 - Pure hypercholesterolemia, unspecified, I10 - Essential (primary) hypertension
[2025-10-04 12:24] VITALS: BMI 36.2
== END 2025-10-04 13:08 | disposition home or self-care (01) ==
LOC: HO.HBS 08:14
PROVIDERS: PCP Internal Medicine; Visit Provider Surgery
DX: E66.812 Obesity, class 2 (principal); Z68.36 Body mass index [BMI] 36.0-36.9, adult
CPT/HCPCS: 99205

== ENCOUNTER 2025-10-25 11:15 | Outpatient (REF) | payer MEDICAID, SELFPAY ==
--- NOTE | ~2025-10-25 | XR_ITS ---
EXAMINATION: XR CHEST CLINICAL INFORMATION: E66.9 - Obesity, unspecified COMPARISON: None available. TECHNIQUE: 2 views of the chest were obtained. FINDINGS: No significant abnormality is noted involving the heart, lungs, mediastinum, bony thorax or soft tissues. XR/XR chest 2V IMPRESSION: Unremarkable chest examination. Electronically signed by: Duy Cox MD 10/25/2025 12:05 PM [facility] [place]
--- NOTE | 2025-10-25 11:23 | ECG_ITS ---
Test Reason : e66.01 Blood Pressure : */* mmHG Vent. Rate : 65 BPM Atrial Rate : 65 BPM P-R Int : 130 ms QRS Dur : 88 ms QT Int : 392 ms P-R-T Axes : 21 9 -2 degrees QTcB Int : 407 ms Normal sinus rhythm Minimal voltage criteria for LVH, may be normal variant ( R in aVL ) Borderline ECG No previous ECGs available Referred By: Nnamdi Huang Electronically Signed By: SARAH ANDERSON MD
== END 2025-10-25 11:16 | disposition home or self-care (01) ==
LOC: HO.XRAY 11:15
PROVIDERS: PCP Internal Medicine; Visit Provider Surgery
DX: E11.9 Type 2 diabetes mellitus without complications (principal); I10 Essential (primary) hypertension; E66.9 Obesity, unspecified; E78.00 Pure hypercholesterolemia, unspecified
CPT/HCPCS: 71046; 93005

== ENCOUNTER → 2025-10-25 11:23 | Outpatient (BNV) | payer MEDICAID, SELFPAY | PROVIDERS: PCP Internal Medicine; Visit Provider Internal Medicine Cardiovascular Disease | DX: E66.01 Morbid (severe) obesity due to excess calories (principal); Z68.36 Body mass index [BMI] 36.0-36.9, adult | CPT/HCPCS: 93010 ==

== ENCOUNTER → 2025-10-25 11:31 | Outpatient (BNV) | payer MEDICAID, SELFPAY | PROVIDERS: PCP Internal Medicine; Visit Provider Radiology Diagnostic Radiology | DX: E66.9 Obesity, unspecified (principal); Z68.36 Body mass index [BMI] 36.0-36.9, adult | CPT/HCPCS: 71046 ==

== ENCOUNTER 2025-11-01 09:52 | Day surgery (SDC) | payer MEDICAID, SELFPAY ==
--- NOTE | 2025-10-25 11:46 | HO.ANESPROP2 ---
Documented by User: Lupe Cordero NP 10/25/25 11:47 HPI - Anesthesia Eval Consult details Narrative: 49yo F for Upper Endoscopy PMFSH Active Problems Active Problems: All Active Problems Non-insulin dependent type 2 diabetes mellitus (Acute) Anxiety (Acute) Depression (Acute) GERD (gastroesophageal reflux disease) (Acute) Hypertension (Acute) Hypercholesteremia (Acute) BMI 36.0-36.9,adult (Acute) Obesity (Acute) Arthritis of carpometacarpal (CMC) joint of right thumb (Acute) Uterine myoma (Acute) Right hand pain (Acute) Carpal tunnel syndrome of left wrist (Acute) Carpal tunnel syndrome of right wrist (Acute) Abnormal uterine bleeding (Acute) Precordial chest pain (Acute) Past Medical History Medical History Non-insulin dependent type 2 diabetes mellitus Anxiety Depression GERD (gastroesophageal reflux disease) BMI 36.0-36.9,adult Obesity Hypercholesteremia Hypertension Family History Family History Unknown No problems noted. Surgical History Surgical History H/O tubal ligation Social History Social History Are you a primary companion caregiver to a significant other at home: No Do you presently have visiting nurse or other home services: No Alcohol intake: current Alcohol intake frequency: holidays/special occasions only Patient Tobacco Use Status: Former Tobacco user Cigarettes Per Day: 4 Substance Use Type: Marijuana Substance Use Frequency: Occasionally Have you been hit, kicked, punched, or otherwise hurt by someone within the past year? 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 Allergies Allergy/AdvReac Type Severity Reaction Status Date / Time acetaminophen (From VICODIN) Allergy Unknown NAUSEA & Verified 11/01/25 10:22 VOMITING naproxen (NAPROXEN) AdvReac Intermediate HEADACHE Verified 11/01/25 10:22 From VICODIN Allergy Unknown NAUSEA & Uncoded 11/01/25 10:22 VOMITING Home Medications ?Medication ?Instructions ?Recorded ?Confirmed ?Last Taken ?Type acetaminophen 650 mg 650 mg PO Q12H 09/15/23 11/01/25 Unknown History tablet,extended release (Tylenol 8 Hour) losartan 50 mg-hydrochlorothiazide 1 tab PO DAILY 08/11/25 11/01/25 Unknown History 12.5 mg tablet omeprazole 20 mg capsule,delayed 20 mg PO DAILY 08/11/25 11/01/25 Unknown History release ezetimibe 10 mg tablet 10 mg PO DAILY 10/04/25 11/01/25 Unknown History rosuvastatin 40 mg tablet (Crestor) 40 mg PO DAILY 10/04/25 11/01/25 Unknown History Exam Narrative Narrative: EKG 10/2025 Vent. Rate : 65 BPM Atrial Rate : 65 BPM P-R Int : 130 ms QRS Dur : 88 ms QT Int : 392 ms P-R-T Axes : 21 9 -2 degrees QTcB Int : 407 ms Normal sinus rhythm Minimal voltage criteria for LVH, may be normal variant ( R in aVL ) Borderline ECG No previous ECGs available CP Stress 2023 Conclusion : Stress echo is negative for ischemia. There is no clear evidence of exercise induced diastolic dysfunctio ot pulmonary hypertension ECHO 2023 Conclusions: - Essentially normal study Assessment and Plan Assessment Anesthesia Assessment: Chart Reviewed Documented by User: Annette Reed MD 11/01/25 10:50 [facility] Past Medical History Medical History Non-insulin dependent type 2 diabetes mellitus Anxiety Depression GERD (gastroesophageal reflux disease) BMI 36.0-36.9,adult Obesity Hypercholesteremia Hypertension Family History Family History Unknown No problems noted. Surgical History Surgical History H/O tubal ligation History of Problems with Anesthesia: No Social History Social History Are you a primary companion caregiver to a significant other at home: No Do you presently have visiting nurse or other home services: No Alcohol intake: current Alcohol intake frequency: holidays/special occasions only Patient Tobacco Use Status: Former Tobacco user Cigarettes Per Day: 4 Substance Use Type: Marijuana Substance Use Frequency: Occasionally Have you been hit, kicked, punched, or otherwise hurt by someone within the past year? 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 Allergies Allergy/AdvReac Type Severity Reaction Status Date / Time acetaminophen (From VICODIN) Allergy Unknown NAUSEA & Verified 11/01/25 10:22 VOMITING naproxen (NAPROXEN) AdvReac Intermediate HEADACHE Verified 11/01/25 10:22 From VICODIN Allergy Unknown NAUSEA & Uncoded 11/01/25 10:22 VOMITING Home Medications ?Medication ?Instructions ?Recorded ?Confirmed ?Last Taken ?Type acetaminophen 650 mg 650 mg PO Q12H 09/15/23 11/01/25 Unknown History tablet,extended release (Tylenol 8 Hour) losartan 50 mg-hydrochlorothiazide 1 tab PO DAILY 08/11/25 11/01/25 Unknown History 12.5 mg tablet omeprazole 20 mg capsule,delayed 20 mg PO DAILY 08/11/25 11/01/25 Unknown History release ezetimibe 10 mg tablet 10 mg PO DAILY 10/04/25 11/01/25 Unknown History rosuvastatin 40 mg tablet (Crestor) 40 mg PO DAILY 10/04/25 11/01/25 Unknown History Exam Airway Mallampati Class: II TM Dist: >3cm Neck ROM: Full Denture: Upper Partial: Lower Loose/Missing/Broken Teeth: Yes, Upper and Lower Heart: RRR Lungs: CTA Assessment and Plan Assessment Anesthesia Assessment: Anesthesia Plan Discussed Final Anesthetic Review History of Problems with Anesthesia: No NPO: Yes ASA Class: II Final Preanesthetic Review: Meds/Allgs Chart Reviewed, Consent Obtained/Reviewed and Anes Risks/Benef Reviewed Patient Risk: Low Procedure Risk: Intermediate Anesthetic Plan Anesthetic Plan: MAC: Disposition: Standard PACU
[2025-11-01 09:53] LABS: MANUAL DIFF FLAG NO
[2025-11-01 10:00] LABS: Hematocrit 38.7 % (37.0-47.0); Hemoglobin 13.0 g/dl (12.0-16.0); Imm Gran Abs Auto 0.03 X10*3/uL (0.00-0.03); Imm Gran Pct Auto 0.3 % (0.0-0.4); Lymphocytes Absolute Auto 2.6 X10*3/uL (1.2-4.9); Mean Corpuscular HGB Conc 33.6 g/dl (31.0-35.0); Mean Corpuscular Hemoglobin 29.5 pg (27.0-33.0); Mean Corpuscular Volume 87.8 fL (80.0-98.0); NRBC Abs Auto 0.000 X10*3/uL (0.0-0.012); NRBC Pct Auto 0.0 /100WBC (0.0-0.2); Platelet Count 354 X10*3/uL (160-400); Red Blood Count 4.41 X10*6/uL (4.20-5.50); White Blood Count 10.0 X10*3/uL (4.8-10.8)
[2025-11-01 10:03] VITALS: BMI 36.6
[2025-11-01] MEDS: Lactated Ringers 1,000 ML 80 ML IVCONT (10:07)
[2025-11-01 10:20] VITALS: BP 107/56; PULSE 80; RESP 18; TEMP 36.8; O2SAT 100
[2025-11-01 10:46] LABS: Alanine Aminotransferase 46 U/L (0-31); Albumin Level 4.5 g/dL (3.5-5.0); Alkaline Phosphatase 88 U/L (39-117); Anion Gap 13 (12-20); Aspartate Amino Transferase 28 U/L (5-31); Blood Urea Nitrogen 9 mg/dL (9-16); Calcium 9.5 mg/dL (8.4-10.2); Carbon Dioxide 26 mmol/L (22-29); Chloride 105 mmol/L (96-108); Cholesterol 101 mg/dL (<200); Creatinine Clr Calc Pharmacy 94.8; Estimated Glomerular Filt Rate > 60; HDL Cholesterol 28 mg/dL (>40); Iron 100 mcg/dL (30-160); Percent Iron Saturation 29 % (15-50); Potassium 3.7 mmol/L (3.3-5.1); Sodium 140 mmol/L (135-145); Total Iron Binding Capacity 346 mcg/dL (228-428); Total Protein 7.4 g/dL (6.5-8.0); Triglycerides 126 mg/dL (<150); Unsaturated Iron Binding 246 ug/dL
[2025-11-01 11:10] LABS: Ferritin 46 ng/mL (10-250)
[2025-11-01 11:17] LABS: Folate 13.8 ng/mL (> or = 4.0); Vitamin B12 486 pg/mL (200-900)
--- NOTE | 2025-11-01 11:20 | P.HPSUR_ITS ---
Pre-Procedural Eval Section A - 24 Hr Update-Section A only Date of Service: 11/01/25 The patient is an INPATIENT: No The patient has been examined within 24 hours of the surgical procedure. The History & Physical has been completed within 30 days and I have reviewed it.: Yes Section B - Complete if H&P > 30 days Chief Complaint: Morbid (severe) obesity due to excess calories Details of Present Illness: GERD Relevant Family History (Specify if Yes): No Relevant Social History: None Present Medications: None Medical History: No relevant PMH History of Previous Operations: No relevant previous surgery Allergies: Allergies Allergy/AdvReac Type Severity Reaction Status Date / Time acetaminophen (From VICODIN) Allergy Unknown NAUSEA & Verified 11/01/25 10:22 VOMITING naproxen (NAPROXEN) AdvReac Intermediate HEADACHE Verified 11/01/25 10:22 From VICODIN Allergy Unknown NAUSEA & Uncoded 11/01/25 10:22 VOMITING Review of Systems Sugical H&P ROS: Negative: Constitution, Cardiovascular, Respiratory, Neurological, Psychiatric, Hem-Onc, Allergic/Immunologic, Gastrointestinal, Genitourinary, Musculoskeletal, Integumentary, Endocrine and Eyes/Ears/Nose/Throat Exam Surgical H&P Exam: Normal: HEENT, Normal: Heart, Normal: Lungs, Normal: Extremities, Normal: Abdomen, Normal: Skin and Normal: Neurological Plan Diagnosis/Plan: Unchanged (EGD to assess etiology of GERD. Risks of bleeding and perforation were discussed with the patient and she is in agreement with the darwin n.) I have reviewed the history and physical and performed a pertinent physical examination on my patient. No changes have occurred unless specified. Time Spent With Patient Time: Total time managing care of this patient today ____ minutes.
--- NOTE | 2025-11-01 11:24 | P.BOP_ITS ---
Brief Operative Note Date of Service: 11/01/25 Pre-op diagnosis: GERD Post-op diagnosis: same Procedure: PROCEDURE DATE: 11/01/2025 PREOPERATIVE DIAGNOSIS: GERD POSTOPERATIVE DIAGNOSIS: ?Same as above. Small diaphragmatic hernia PROCEDURE: Fighbhie-klsqyk-ogodvpjdidqf with biopsies Surgeon: ?Geoffrey Huang M.D.. Ph.D. Medical Customer Service Representative: None ? Anesthesia: IV sedation Estimated blood loss: ?Minimal FINDINGS AND PROCEDURE: ? OPERATIVE INDICATIONS: ?The patient is a 49 year old female known to me who is interested in bariatric surgery. The patient has GERD. Based on this information I recommended an upper endoscopy to evaluate the patient's symptoms. Risks and complications of the surgery were discussed with the patient in advance particularly the possibility of perforation or bleeding that may require surgical intervention. The patient understood the risks and was in agreement with the plan. ? PROCEDURE: After informed consent was obtained by the patient, the patient was ?transferred to the Operating Room and was placed in the supine position.? After successful induction of IV sedation, a mouth block was inserted and the patient was placed in the left lateral decubitus position. An upper endoscopy was performed next, the oropharynx and esophagus appeared within the normal limits. There was a small hiatal hernia. The z-line was smooth. Two biopsies were obtained from the distal esophagus 2-3 cm proximal to the GE junction and two additional biopsies from the GE junction. The stomach was entered and it appeared to be of normal size. There was no gastritis. There was no stricture or ulcer. A biopsy was obtained from the gastric fundus and the antrum. No significant bleeding was noted from any of the biopsy sites. Retroflexion of the scope confirmed the presence of a hiatal hernia. The scope was then advanced into the duodenum all the way to the 4th portion, which appeared to be normal as well. At that point the duodenum ?and the stomach were decompressed and the scope was withdrawn from the patient's mouth. The patient extubated and was transferred in stable condition to the Recovery Room for further care. I was present and performed all steps of the procedure. There were no residents to assist with this case. Geoffrey Huang M.D., Ph.D. Surgeon: Nnamdi Huang MD Anesthesia: MAC Was an Medical Customer Service Representative used for this Procedure?: No Estimated blood loss (mL): 0 IV fluids (mL): 400 Urine output (mL): 0 (No Mello to record output) Pathology: other (1) antrum x1, 2) fundus x1, 3) GE junction x2, 4) distal esophagus x2) Condition: stable Disposition: PACU
[2025-11-01 11:45] VITALS: BP 97/47; PULSE 84; RESP 16; TEMP 36.8; O2SAT 100
[2025-11-01 12:00] VITALS: BP 118/63; PULSE 69; RESP 22; O2SAT 100
[2025-11-01 12:15] VITALS: BP 130/75; PULSE 76; RESP 16; TEMP 36.7; O2SAT 96
== END 2025-11-01 12:56 | disposition home or self-care (01) ==
PROVIDERS: PCP Internal Medicine; Visit Provider Surgery
PROC: 0DJ08ZZ Inspection of Upper Intestinal Tract, Via Natural or Artificial Opening Endoscopic (ICD-10-PCS; CPT 43235; principal; 2025-11-01 11:40)
DX: K21.9 Gastro-esophageal reflux disease without esophagitis (principal); E66.01 Morbid (severe) obesity due to excess calories; Z68.36 Body mass index [BMI] 36.0-36.9, adult; K44.9 Diaphragmatic hernia without obstruction or gangrene; E11.9 Type 2 diabetes mellitus without complications; I10 Essential (primary) hypertension; E78.00 Pure hypercholesterolemia, unspecified; F32.A Depression, unspecified; F41.9 Anxiety disorder, unspecified; Z79.85 Long-term (current) use of injectable non-insulin antidiabetic drugs; Z79.899 Other long term (current) drug therapy; Z88.5 Allergy status to narcotic agent; Z88.6 Allergy status to analgesic agent; Z98.51 Tubal ligation status; Z87.891 Personal history of nicotine dependence
CPT/HCPCS: 43239; 36415; 80053; 80061; 82306; 82607; 82728; 82746; 83036; 83525; 83540; 84425; 84443; 84590; 84630; 85025; 86140; 88305; 88313; 88342; J2704

== ENCOUNTER → 2025-11-01 09:52 | Outpatient (BNV) | payer MEDICAID, SELFPAY | PROVIDERS: PCP Internal Medicine; Visit Provider Surgery | DX: E66.812 Obesity, class 2 (principal); Z68.36 Body mass index [BMI] 36.0-36.9, adult; K21.9 Gastro-esophageal reflux disease without esophagitis | CPT/HCPCS: 43239 ==